=== PATIENT | female | born 1975 | race Caucasian/White ===

== ENCOUNTER → 2018-02-17 12:17 | Outpatient (CLI) | payer BC, SELFPAY | PROVIDERS: Visit Provider Nurse Practitioner Adult Health | DX: N39.0 Urinary tract infection, site not specified (principal) | CPT/HCPCS: 87077; 87086; 87088; 87186 ==

== ENCOUNTER → 2018-03-05 10:03 | Outpatient (CLI) | payer BC, SELFPAY | PROVIDERS: Family Provider Family Medicine; PCP Family Medicine; Referring Provider Nurse Practitioner Adult Health; Visit Provider Nurse Practitioner Adult Health | DX: R30.0 Dysuria (principal) | CPT/HCPCS: 87086; 87088 ==

== ENCOUNTER → 2018-05-19 08:16 | Outpatient (CLI) | payer BC, SELFPAY ==
--- OUTSIDE RECORDS SUMMARY | 2018-08-20 08:40 | XMS RPT_ITS ---
:1975 Author Organization OHIP Care Team Providers Name Role Phone Hector Holman Attending Unavailable Edgar Ordoñez Primary Care Unavailable Hector Holman Referring Unavailable Leisa Salas Attending Unavailable Leisa Salas Referring Unavailable Primay Care Physicia, No Primary Care Unavailable Leisa Salas Attending Unavailable Leisa Salsa Referring Unavailable Edgar Ordoñez Primary Care Unavailable AMANDA PHAN (PORCELAIN FINISH SPRAYER) Attending Unavailable CHRIS BHATT Referring Unavailable LOLLY VILLANUEVA (AMMONIA REFRIGERATION TECHNICIAN) Attending Unavailable JUVENAL ORDOÑEZ) Attending Unavailable JUVENAL ORDOÑEZ) Referring Unavailable MIREILLE DAVE (PORCELAIN FINISH SPRAYER) Attending Unavailable MIREILLE DAVE (PORCELAIN FINISH SPRAYER) Referring Unavailable JUVENAL ORDOÑEZ) Referring Unavailable JUVENAL ORDOÑEZ) Referring Unavailable JUVENAL ORDOÑEZ) Referring Unavailable DAVID ELY Attending Unavailable JUVENAL ORDOÑEZ) Referring Unavailable GLENYS MUNOZ (PORCELAIN FINISH SPRAYER) Attending Unavailable JUVENAL ORDOÑEZ) Attending Unavailable JUVENAL ORDOÑEZ) Referring Unavailable PROBLEMS PROBLEMS DATE TYPE CONDITION / CODE ATTENDING STATUS SOURCE 05/19/2018 Unknown R30.0 - Dysuria / River[place] Active [facility] R30.0(ICD-10) [facility] Repository 02/08/2018 Active Dysuria / NA Active [facility] R30.0(ICD-10) [facility] [place] Repository 01/31/2018 Active Pelvic and OLDER, GLENYS Active [facility] perineal pain / (PORCELAIN FINISH SPRAYER) [facility] [place] R10.2(ICD-10) Repository 01/31/2018 Active Frequency of OLDER, GLENYS Active [facility] micturition / (PORCELAIN FINISH SPRAYER) [facility] [place] R35.0(ICD-10) Repository 11/11/2017 Active Unspecified lump NA Active [facility] in the left [facility] [place] breast, Repository unspecified quadrant / N63.20(ICD-10) 11/09/2017 Active Encounter for Active [facility] screening [facility] [place] mammogram for Repository malignant neoplasm of breast / Z12.31(ICD-10) 09/22/2017 Active Right upper NA Active [facility] quadrant pain / [facility] [place] R10.11(ICD-10) Repository 08/07/2017 Active Encounter for NA Active [facility] general adult [facility] [place] medical Repository examination without abnormal findings / Z00.00(ICD-10) 07/16/2017 Active Candidal LOLLY VILLANUEVA Active [facility] stomatitis / (AMMONIA REFRIGERATION TECHNICIAN) [facility] [place] B37.0(ICD-10) Repository 07/03/2017 Active Unknown / AMANDA PHAN Active [facility] UNK(Unknown) (PORCELAIN FINISH SPRAYER) [facility] [place] Repository PROCEDURES PROCEDURES No Procedure Records FoundRESULTS RESULTS C DIFFICILE PCR Collected: 06/04/2018 Status: F Source: [place] 11:05 AM [facility] REPOSITORY TYPE CODE TESTS RESULT OUT OF RANGE REFERENCE UNITS LAB CDFRES C Abnormal difficile PCR Positive for Alert C. difficile toxin by PCR Result Comment: . A positive PCR result may indicate C. difficile infection or colonization. The positive predictive value of this test for C. difficile infection is highest for patients with clinically significant diarrhea (>=3 unformed stools in 24 h) who do not have an alternative explanation (e.g., recent receipt of laxatives). Toxin EIA testing will also be performed as recommended by IDSA clinical practice guidelines for institutions without preagreed criteria for specimen submission. Performed By: #### CDPCR #### [facility] [address] [place], [place] [address] C. DIFF TOXIN BY Collected: 06/04/2018 Status: F Source: [place] EIA LAB 11:05 AM [facility] ORDER ONLY REPOSITORY TYPE CODE TESTS RESULT OUT OF RANGE REFERENCE UNITS LAB CDEIAT C. Abnormal difficile toxin Alert C.diff detected by Toxin EIA EIA. Performed By: #### CDEIA #### [facility] [address] [place], [place] [address] CNPN Observed: 06/04/2018 Status: COMPLETED Source: [place] 12:00 AM [facility] REPOSITORY Telephone (FAMPWS) KAREN BELL ([id number]) 1975 F Date Time Provider Department 06/04/18 [facility]NAL [facility]DO[facility] During your visit today, we recorded the following information about you: Pushpa Spann RAULITO 06/04/2018 9:14 AM Signed Patient calling has history of C-diff after taking antibiotics, and she had taken 3 days of cipro started on xmas. Patient now has been having 4 to 5 diarrhea stools daily past several days and asking if she should have stool tested for C-diff or wait it out until Thursday to see if stops on its own? Patient said she does not feel bad at all, but with the history she wants to be proactive. Please advise Juvenal Ordoñez MD 06/04/2018 10:08 AM Signed I will order stool study for c diff with history of infection and recent abx use. Patient may pecan picker today and bring in sample at earliest convenience. Recommend pushing PO fluids, bland diet, increased fiber, and avoidance of OTC anti diarrheals until results are back. Jacklyn Booker Ma 06/04/2018 11:01 AM Addendum Patient notified of results, verbalizes understanding of instructions. Patient advised if cdiff comes back positive wants DIFICIL rx nothing else. Jacklyn Ordoñez MD 06/04/2018 11:04 AM Signed Ok, will await results. Allergies As of Date: 06/04/2018 Noted Allergy Reaction ADHESIVE TAPE (ROSINS) 10/19/2013 2 - Rash PENICILLINS 10/19/2013 2 - Rash SULFA (SULFONAMIDE ANTIBIOTICS) 09/08/2015 5 - Intolerance Date Reviewed: 02/02/2018 Reviewed by: Jon Blackman Ma - Fully Assessed Reason for Visit: question if should have stool sample checked [Other] Primary Visit Diagnosis:Diarrhea, unspecified type [R19.7] Order(s):C. DIFFICILE PCR [SQCDPCR] Order #: [id number]. #:[id number] Prescriptions as of 06/04/2018 Sig: SERTRALINE 25 MG TABLET Take 1 tablet by mouth once d* PHENAZOPYRIDINE 200 MG TABLET Take 1 tablet by mouth three * DICYCLOMINE 20 MG TABLET Take 1 tablet by mouth three * Problem List As Of Date 06/04/2018 Noted Resolved Enterocolitis due to Clostridium difficile [A04*INVALID FOR* More... Recurrent UTI [N39.0] INVALID FOR* More... Irritable bowel syndrome with both constipation*INVALID FOR* Encounter Status:Closed by JACKLYN BOOKER MA on 06/04/18 Observed: 05/19/2018 Status: F Source: [place] CULTURE, URINE 8:19 AM [facility] REPOSITORY Urine Culture ORGANISM 1: Streptococcus agalactiae (B) [place] Count 11,000-25,000 Streptococcus agalactiae (B): REACTION Ampicillin $ <=0.25 S Inducable Clindamycin Resistan - Linezolid $$$$ <=2 S Vancomycin $ 0.5 S (NF) indicates non-formulary drug at [facility]. Approval by Infectious Disease Specialist required before non-formulary drugs may be ordered and/or dispensed. * CLSI guidelines does not recommend testing of cephalosporins. This interpretation is deduced from Beta-lactam/penicillin results. Performed By: #### [id number] #### [facility] [address] [place], [address] Observed: 03/05/2018 Status: F Source: [place] CULTURE, URINE 10:09 AM [facility] REPOSITORY Urine Culture Below infection level. Group B Streptococcus isolated from culture. ORGANISM 1: Mixed Gram Positive Organisms [place] Count 1000-10,000 Performed By: #### [id number] #### [facility] [address] [place], [address] Observed: 02/17/2018 Status: F Source: [place] CULTURE, URINE 10:30 AM [facility] REPOSITORY Urine Culture ORGANISM 1: Streptococcus agalactiae (B) [place] Count 11,000-25,000 Streptococcus agalactiae (B): REACTION Ampicillin $ <=0.25 S Benzylpenicillin NF <=0.06 S Ceftriaxone $ <=0.12 S Inducable Clindamycin Resistan - Linezolid $$$$ <=2 S Vancomycin $ 0.5 S (NF) indicates non-formulary drug at [facility]. Approval by Infectious Disease Specialist required before non-formulary drugs may be ordered and/or dispensed. * CLSI guidelines does not recommend testing of cephalosporins. This interpretation is deduced from Beta-lactam/penicillin results. Performed By: #### [id number] #### [facility] [address] [place], [address] URINALYSIS WITH Collected: 02/08/2018 Status: F Source: [facility] 2:55 PM [facility] REPOSITORY TYPE CODE TESTS RESULT OUT OF REFERENCE UNITS RANGE LAB UCOL Yellow Color Yellow LAB [facility] Clear Clarity Clear LAB UGLUC Negative mg/dL Glucose, Urine Negative LAB UBIL Negative Bilirubin, Urine Negative LAB UKET Negative Ketones, Urine Negative LAB USPG 1.005-1.030 Specific [place], Ur 1.005 LAB UHGB Negative Hemoglobin/Blood, Negative Ur LAB UPH 4.5-8.0 pH 6.0 LAB UPROT Negative mg/dL Protein, Urine Negative LAB UUROB Normal Urobilinogen Normal LAB UNITR Negative Nitrites Negative LAB ULKEST Negative Leukest Negative LAB UCOM Comments SEE COMMENT Result Comment: N/A LAB UMCOM Urine SEE Miki Comment COMMENT Result Comment: N/A LAB UWBC 0-5 /HPF WBC 0-5 LAB URBC 0-3 /HPF RBC 0-3 LAB UEPI /HPF Epithelial SEE Cells COMMENT Result Comment: Few Squamous Epithelial Cells Performed By: #### UAWMIC #### [facility] [address], [place] [address] Observed: 02/08/2018 Status: F Source: [place] URINE CULTURE 2:55 PM [facility] REPOSITORY Culture Result - <10,000 CFU/ml Streptococcus agalactiae (Group B streptococcus) --> ABNORMAL ALERT No further workup --> ABNORMAL ALERT 10,000 - <50,000 CFU/ml Normal urogenital av Performed By: #### URCUL #### [facility] [address] [place], [place] [address] PROGRESS Observed: 02/02/2018 Status: COMPLETED Source: [place] 3:57 PM [facility] REPOSITORY HNO ID: [id number] Author: Juvenal Bruce) Ti[place] Service: (none) Author Type: Physician Type: Progress Notes Filed: 02/03/2018 7:53 AM Note Text: Chief Complaint Patient presents with: Hematuria: was in express care 48 hours ago - ua cx in process HPI Karen Bell is a 42 year old female who presents here today for Above Complaints. Patient previously diagnosed with UTI after positive urine culture on 01/22. Positive for Group B strep and treated with macrobid which didn't have much effect on her symptoms. Still complaining of intermittent suprapubic discomfort with radiation down her legs. Admits to urinary frequency. Denies urgency, dysuria, hematuria flank pain, nausea, vomiting. Very hesitant to start the Keflex as recommended for this infection after we heard that the macrobid was not helping. Developed C diff on keflex and would like to avoid it if at all possible. Repeat urine culture results ordered at UC visit on 01/31 still pending today. Would like to see if she is still positive before starting abx. Questioning PCN instead despite possible allergy causing rash, but states that the rash may have been 2/2 scarlet fever which is why she was on abx in the first place. Past medical history, appointments, medications, allergies reviewed. Previous Medical History PAST MEDICAL HISTORY Diagnosis Date - C. difficile colitis 2015 Previous Surgical History PAST SURGICAL HISTORY Procedure Laterality Date - PAST SURGICAL HISTORY OF x 4 - PAST SURGICAL HISTORY OF 2012 L elbow replacement s/p injury Family History FAMILY HISTORY Problem Relation Age of Onset - Stroke Mother 63 hyperlipidemia, carotid artery - Thyroid Father ? parathyroid adenoma - None Sister - Cancer Maternal Grandfather lymphoma - Stroke Maternal Grandfather - Cancer Paternal Grandfather lung Patient Allergies ALLERGIES Allergen Reactions - Adhesive Tape (Rae* Rash - Penicillins Rash - Sulfa (Sulfonamide * Intolerance Current Medications Current Outpatient Prescriptions on File Prior to Visit: dicyclomine (BENTYL) 20 mg tablet Take 1 tablet by mouth three times daily as needed. cephALEXin (KEFLEX) 500 mg capsule Take 1 capsule by mouth twice daily for 7 days. (Patient not taking: Reported on 01/31/2018 ) No current facility-administered medications on file prior to visit. Social History Social History Marital status: Spouse name: Years of education: Number of children: Occupational History Occupation Employer Comment stay at home Social History Main Topics Smoking status: Never Smoker Smokeless tobacco: Never Used Alcohol use: Yes 1.5 oz/week Glasses of Wine (5oz): 1 per week Drug use: No Sexual activity: Yes Partners with: Male Comment: natural family planning Social History Narrative 3 kids Natural family planning Review of Symptoms REVIEW OF SYSTEMS See HPI EXAM: BP 126/78 Pulse 64 Temp 37 ?C (98.6 ?F) (Temporal Artery) Resp 12 Wt 50.3 kg (111 lb) LMP 01/19/2018 BMI 18.47 kg/m? General Appearance: Well appearing, alert, in no acute distress, well-hydrated, well nourished.. Skin: Skin color, texture, turgor normal, no suspicious rashes or lesions. Abdomen: Abdomen soft.Bowel sounds normal. No masses, organomegaly, Negative CVA tenderness, Positive findings: tenderness mild suprapubic. Health Maintenance List HPV EVERY 5 YEARS due on 2007 MAMMOGRAM due on 2017 INFLUENZA(1) due on 01/30/2018 PAP EVERY 5 YEARS due on 11/30/2019 DTAP,TDAP,TD(2 - Td) due on 12/26/2026 ASSESSMENT/PLAN: 1. Recurrent UTI - ICD9: 599.0, ICD10: N39.0 Will await urine culture results before starting new abx. Will review alternative abx aside from keflex if still positive. Push PO fluids. Will call tomorrow with results. Juvenal Ordoñez MD CNOV Observed: 02/02/2018 Status: COMPLETED Source: [place] 3:40 PM [facility] REPOSITORY Office Visit (FAMPWS) KAREN BELL ([id number]) 1975 F Date Time Provider Department 02/02/18 3:40 PM JUVENAL ORDOÑEZ) FAMPWS During your visit today, we recorded the following information about you: Temperature Pulse Respiration Blood pressure 98.6 degrees 64/minute 12/minute 126/78 Weight 50.3 kg Juvenal Ordoñez MD 02/03/2018 7:53 AM Signed Chief Complaint Patient presents with: Hematuria: was in express care 48 hours ago - ua cx in process HPI Karen Bell is a 42 year old female who presents here today for Above Complaints. Patient previously diagnosed with UTI after positive urine culture on 01/22. Positive for Group B strep and treated with macrobid which didn't have much effect on her symptoms. Still complaining of intermittent suprapubic discomfort with radiation down her legs. Admits to urinary frequency. Denies urgency, dysuria, hematuria flank pain, nausea, vomiting. Very hesitant to start the Keflex as recommended for this infection after we heard that the macrobid was not helping. Developed C diff on keflex and would like to avoid it if at all possible. Repeat urine culture results ordered at visit on 01/31 still pending today. Would like to see if she is still positive before starting abx. Questioning PCN instead despite possible allergy causing rash, but states that the rash may have been 2/2 scarlet fever which is why she was on abx in the first place. Past medical history, appointments, medications, allergies reviewed. Previous Medical History PAST MEDICAL HISTORY Diagnosis Date - C. difficile colitis 2015 Previous Surgical History PAST SURGICAL HISTORY Procedure Laterality Date - PAST SURGICAL HISTORY OF x 4 - PAST SURGICAL HISTORY OF 2011 L elbow replacement s/p injury Family History FAMILY HISTORY Problem Relation Age of Onset - Stroke Mother 63 hyperlipidemia, carotid artery - Thyroid Father ? parathyroid adenoma - None Sister - Cancer Maternal Grandfather lymphoma - Stroke Maternal Grandfather - Cancer Paternal Grandfather lung Patient Allergies ALLERGIES Allergen Reactions - Adhesive Tape (Rae* Rash - Penicillins Rash - Sulfa (Sulfonamide * Intolerance Current Medications Current Outpatient Prescriptions on File Prior to Visit: dicyclomine (BENTYL) 20 mg tablet Take 1 tablet by mouth three times daily as needed. cephALEXin (KEFLEX) 500 mg capsule Take 1 capsule by mouth twice daily for 7 days. (Patient not taking: Reported on 01/31/2018 ) No current facility-administered medications on file prior to visit. Social History Social History Marital status: Spouse name: Years of education: Number of children: Occupational History Occupation Employer Comment stay at home Social History Main Topics Smoking status: Never Smoker Smokeless tobacco: Never Used Alcohol use: Yes 1.5 oz/week Glasses of Wine (5oz): 1 per week Drug use: No Sexual activity: Yes Partners with: Male Comment: natural family planning Social History Narrative 3 kids Natural family planning Review of Symptoms REVIEW OF SYSTEMS See HPI EXAM: BP 126/78 Pulse 64 Temp 37 ?C (98.6 ?F) (Temporal Artery) Resp 12 Wt 50.3 kg (111 lb) LMP 01/19/2018 BMI 18.47 kg/m? General Appearance: Well appearing, alert, in no acute distress, well-hydrated, well nourished.. Skin: Skin color, texture, turgor normal, no suspicious rashes or lesions. Abdomen: Abdomen soft.Bowel sounds normal. No masses, organomegaly, Negative CVA tenderness, Positive findings: tenderness mild suprapubic. Health Maintenance List HPV EVERY 5 YEARS due on 2007 MAMMOGRAM due on 2017 INFLUENZA(1) due on 01/30/2018 PAP EVERY 5 YEARS due on 11/30/2019 DTAP,TDAP,TD(2 - Td) due on 12/26/2026 ASSESSMENT/PLAN: 1. Recurrent UTI - ICD9: 599.0, ICD10: N39.0 Will await urine culture results before starting new abx. Will review alternative abx aside from keflex if still positive. Push PO fluids. Will call tomorrow with results. Juvenal Ordoñez MD Referring Provider: SELF [[id number]] Allergies As of Date: 02/02/2018 Noted Allergy Reaction ADHESIVE TAPE (ROSINS) 10/19/2013 2 - Rash PENICILLINS 10/19/2013 2 - Rash SULFA (SULFONAMIDE ANTIBIOTICS) 09/08/2015 5 - Intolerance Date Reviewed: 02/02/2018 Reviewed by: Jon Blackman Ma - Fully Assessed Reason for Visit: Hematuria [335] Cmt: was in express care 48 hours ago - ua cx in process Primary Visit Diagnosis:Recurrent UTI [N39.0] Prescriptions as of 02/02/2018 Sig: DICYCLOMINE 20 MG TABLET Take 1 tablet by mouth three * CEPHALEXIN 500 MG CAPSULE Take 1 capsule by mouth twice* Patient not taking: Reported on 01/31/2018 Problem List As Of Date 02/02/2018 Noted Resolved Enterocolitis due to Clostridium difficile [A04*INVALID FOR* More... Recurrent UTI [N39.0] INVALID FOR* More... Irritable bowel syndrome with both constipation*INVALID FOR* Encounter Status:Closed by JUVENAL ORDOÑEZ MD on 02/03/18 Observed: 01/31/2018 Status: F Source: [place] URINE CULTURE 9:50 PM [facility] REPOSITORY Sp. Request/Comment: - Specimen received in preservative Culture Result - <10,000 CFU/ml Streptococcus agalactiae (Group B streptococcus) --> ABNORMAL ALERT No further workup --> ABNORMAL ALERT <10,000 CFU/ml --> ABNORMAL ALERT Enterococcus --& gt; ABNORMAL ALERT Insignificant colony count. No further workup. --> ABNORMAL ALERT Cephalosporins, clindamycin, and TMP-SMX are not effective for the treatment of enterococcal infections. --> ABNORMAL ALERT <10,000 CFU/ml Normal urogenital av Performed By: #### URCUL #### [facility] [address] [place], [place] [address] PROGRESS Observed: 01/31/2018 Status: COMPLETED Source: [place] 3:15 PM [facility] [place] REPOSITORY HNO ID: [id number] Author: Glenys (Jen) Older Service: (none) Author Type: Nurse Practitioner Type: Progress Notes Filed: 01/31/2018 3:37 PM Note Text: CC: Patient presents with: UTI HPI Karen Bell is a 42 year old female who presents with complaint of possible UTI. She was seen on 01/22 in urgent care with urinary frequency and pelvic discomfort. Urine dip was negative except for large amount of blood but pt was on her period at that time. Urine culture was positive for >100,000 group B strep and treated with 5 day course of Macrobid. Patient states symptoms never really resolved, continues to have intermittent pelvic discomfort that sometimes causing numbness and tingling to radiate down her legs. No trigger for pain including that she is aware of and resolves on its own. Does not improve or worsen with urination. Denies: burning, urgency, foul smelling urine, backpain, hematuria, fever, chills, abdominal pain, flank pain, abnormal vaginal discharge, vaginal redness and vaginal itching Treatments: increasing her fluids Risk factors for UTI: previous urinary tract infection and interstitial cystitis. Last time she had issues with IC was a few years ago. REVIEW OF SYSTEMS Musculoskeletal: Denies lumbar spine pain or pain with ROM PMH, Medications, labs, allergies, and recent past visits with PCP were reviewed and updated as able. PHYSICAL EXAM: BP 110/70 Pulse 68 Temp 36.8 ?C (98.2 ?F) (Left Tympanic) Resp 10 Wt 50.8 kg (112 lb) LMP 01/19/2018 BMI 18.64 kg/m? General: Well appearing and alert CV: Regular rate and rhythm without obvious murmur Lungs: clear to auscultation bilaterally Back: no pinpoint spinal tenderness, no SI joint tenderness, no CVA tenderness, Full and painless ROM Abdomen: Abdomen soft, non-distended. mild suprapubic tenderness with palpation. No guarding or rebound tenderness. Bowel sounds normal and active. No masses, organomegaly. ASSESSMENT/PLAN: 1. Suprapubic discomfort - ICD9: 789.09, ICD10: R10.2 (primary diagnosis) Etiology unclear Differential Diagnosis includes Cystitis and interstitial cystitis - UA DIP B/O negative, send URINE CULTURE Will defer treatment until results of culture. Patient very hesitant to start antibiotic due to prior history of C-diff less than one year ago secondary to keflex. Advised patient if still positive for Group B strep keflex would be the most effective. Unable to take PCN due to rash that occurred when she was a child. 2. Urine frequency - ICD9: 788.41, ICD10: R35.0 As above - UA DIP B/O - URINE CULTURE Prescription instructions reviewed with patient as applicable. Potential red flag symptoms discussed with the patient. Reviewed appropriate action plan to take if red flag symptoms occur. Patient agreeable to treatment plan. Glenys Munoz APRN.CNP CNOV Observed: 01/31/2018 Status: COMPLETED Source: [place] 3:00 PM [facility] REPOSITORY Office Visit (WSTR) KAREN BELL ([id number]) 1975 F Date Time Provider Department 01/31/18 3:00 PM GLENYS MUNOZ (JEN) WSTR During your visit today, we recorded the following information about you: Temperature Pulse Respiration Blood pressure 98.2 degrees 68/minute 10/minute 110/70 Weight 50.8 kg Glenys Munoz APRN.CNP 01/31/2018 3:37 PM Signed CC: Patient presents with: UTI HPI Karen Bell is a 42 year old female who presents with complaint of possible UTI. She was seen on 01/22 in urgent care with urinary frequency and pelvic discomfort. Urine dip was negative except for large amount of blood but pt was on her period at that time. Urine culture was positive for >100,000 group B strep and treated with 5 day course of Macrobid. Patient states symptoms never really resolved, continues to have intermittent pelvic discomfort that sometimes causing numbness and tingling to radiate down her legs. No trigger for pain including that she is aware of and resolves on its own. Does not improve or worsen with urination. Denies: burning, urgency, foul smelling urine, backpain, hematuria, fever, chills, abdominal pain, flank pain, abnormal vaginal discharge, vaginal redness and vaginal itching Treatments: increasing her fluids Risk factors for UTI: previous urinary tract infection and interstitial cystitis. Last time she had issues with IC was a few years ago. REVIEW OF SYSTEMS Musculoskeletal: Denies lumbar spine pain or pain with ROM PMH, Medications, labs, allergies, and recent past visits with PCP were reviewed and updated as able. PHYSICAL EXAM: BP 110/70 Pulse 68 Temp 36.8 ?C (98.2 ?F) (Left Tympanic) Resp 10 Wt 50.8 kg (112 lb) LMP 01/19/2018 BMI 18.64 kg/m? General: Well appearing and alert CV: Regular rate and rhythm without obvious murmur Lungs: clear to auscultation bilaterally Back: no pinpoint spinal tenderness, no SI joint tenderness, no CVA tenderness, Full and painless ROM Abdomen: Abdomen soft, non-distended. mild suprapubic tenderness with palpation. No guarding or rebound tenderness. Bowel sounds normal and active. No masses, organomegaly. ASSESSMENT/PLAN: 1. Suprapubic discomfort - ICD9: 789.09, ICD10: R10.2 (primary diagnosis) Etiology unclear Differential Diagnosis includes Cystitis and interstitial cystitis - UA DIP B/O negative, send URINE CULTURE Will defer treatment until results of culture. Patient very hesitant to start antibiotic due to prior history of C-diff less than one year ago secondary to keflex. Advised patient if still positive for Group B strep keflex would be the most effective. Unable to take PCN due to rash that occurred when she was a child. 2. Urine frequency - ICD9: 788.41, ICD10: R35.0 As above - UA DIP B/O - URINE CULTURE Prescription instructions reviewed with patient as applicable. Potential red flag symptoms discussed with the patient. Reviewed appropriate action plan to take if red flag symptoms occur. Patient agreeable to treatment plan. Glenys Munoz, MILO.PORCELAIN FINISH SPRAYER Referring Provider: SELF [[id number]] Allergies As of Date: 01/31/2018 Noted Allergy Reaction ADHESIVE TAPE (ROSINS) 10/19/2013 2 - Rash PENICILLINS 10/19/2013 2 - Rash SULFA (SULFONAMIDE ANTIBIOTICS) 09/08/2015 5 - Intolerance Date Reviewed: 01/31/2018 Reviewed by: Karen Sahu Ma - Fully Assessed Reason for Visit: UTI [116] Primary Visit Diagnosis:Suprapubic discomfort [R10.2] Other Visit Diagnosis:Urine frequency [R35.0] Order(s):UA DIP B/O [[id number]] Order #: [id number] URINE CULTURE [SQURCUL] Order #: [id number] Prescriptions as of 01/31/2018 Sig: DICYCLOMINE 20 MG TABLET Take 1 tablet by mouth three * CEPHALEXIN 500 MG CAPSULE Take 1 capsule by mouth twice* Patient not taking: Reported on 01/31/2018 Problem List As Of Date 01/31/2018 Noted Resolved Enterocolitis due to Clostridium difficile [A04*INVALID FOR* More... Recurrent UTI [N39.0] INVALID FOR* More... Irritable bowel syndrome with both constipation*INVALID FOR* Encounter Status:Closed by GLENYS MUNOZ CNP on 01/31/18 Observed: 01/22/2018 Status: F Source: [place] URINE CULTURE 8:30 PM [facility] REPOSITORY Sp. Request/Comment: - Specimen received in preservative Culture Result - >=100,000 CFU/ml Streptococcus agalactiae (Group B streptococcus) --> ABNORMAL ALERT Susceptibility testing not performed on beta hemolytic streptococci due to predictable suscept ibility to penicillin and other beta lactams. For testing, call Microbiology within 72 hours. --> ABNORMAL ALERT Performed By: #### URCUL #### [facility] [address] [id number] PROGRESS Observed: 01/22/2018 Status: COMPLETED Source: [place] 7:50 PM [facility] REPOSITORY HNO ID: [id number] Author: Shaina (Lease Analyst) Basilio Service: (none) Author Type: Nurse Practitioner Type: Progress Notes Filed: 01/22/2018 8:27 PM Note Text: Subjective HPI Karen Bell is a 42 year old female who presents with urinary frequency and dysuria for the past 5 days. No fever. She has taken tylenol and advil at home. She has a history of interstitial cystitis and has pain similar to this with IC flares. She wants to make sure she does not have a UTI currently. She is currently menstruating. Review of Systems Constitutional: Negative. Negative for chills and fever. Respiratory: Negative. Cardiovascular: Negative. Gastrointestinal: Positive for abdominal pain (suprapubic). Genitourinary: Positive for dysuria and frequency. BP 118/80 Pulse 76 Temp 36.6 ?C (97.9 ?F) (Tympanic) Resp 16 Wt 51.3 kg (113 lb) LMP 01/19/2018 BMI 18.80 kg/m? PAST MEDICAL HISTORY Diagnosis Date - C. difficile colitis 2015 PAST SURGICAL HISTORY Procedure Laterality Date - PAST SURGICAL HISTORY OF x 4 - PAST SURGICAL HISTORY OF 2012 L elbow replacement s/p injury ALLERGIES Adhesive Tape (Rosins); Penicillins; Sulfa (Sulfonamide Antibiotics) MEDICATIONS dicyclomine (BENTYL) 20 mg tablet Take 1 tablet by mouth three times daily as needed. FAMILY HISTORY Problem Relation Age of Onset - Stroke Mother 63 hyperlipidemia, carotid artery - Thyroid Father ? parathyroid adenoma - None Sister - Cancer Maternal Grandfather lymphoma - Stroke Maternal Grandfather - Cancer Paternal Grandfather lung Social History Substance Use Topics - Smoking status: Never Smoker - Smokeless tobacco: Never Used - Alcohol use 1.5 oz/week 1 Glasses of Wine (5oz) per week Objective Physical Exam Constitutional: She is well-developed, well-nourished, and in no distress. Cardiovascular: Normal rate, regular rhythm and normal heart sounds. Pulmonary/Chest: Effort normal and breath sounds normal. Abdominal: There is no hepatosplenomegaly. There is tenderness in the suprapubic area. There is no CVA tenderness. Neurological: She is alert. Skin: Skin is warm and dry. Nursing note and vitals reviewed. ASSESSMENT/PLAN: 1. Urinary frequency - ICD9: 788.41, ICD10: R35.0 acute - UA positive for hematuria and ketones - Send urine for culture - Patient education for prevention given - UA DIP B/O - URINE CULTURE - likely IC flare - Follow-up with your PCP in 3-5 days if symptoms have not improved or sooner if symptoms worsen - Discussed red flags and need for immediate medical evaluation if any occur. - Discussed supportive care treatment with fluids, rest and analgesia. - Discussed expected course of illness Shaina Richmond APRN.PORCELAIN FINISH SPRAYER CNOV Observed: 01/22/2018 Status: COMPLETED Source: [place] 7:15 PM [facility] REPOSITORY Office Visit ([facility]) KAREN BELL ([id number]) 1975 F Date Time Provider Department 01/22/18 7:15 PM SHAINA RICHMOND (PORCELAIN FINISH SPRAYER) [facility] During your visit today, we recorded the following information about you: Temperature Pulse Respiration Blood pressure 97.9 degrees 76/minute 16/minute 118/80 Weight Last Period 51.3 kg 01/19/18 Shaina Richmond APRN.JNE 01/22/2018 8:27 PM Signed Subjective HPI Karen Bell is a 42 year old female who presents with urinary frequency and dysuria for the past 5 days. No fever. She has taken tylenol and advil at home. She has a history of interstitial cystitis and has pain similar to this with IC flares. She wants to make sure she does not have a UTI currently. She is currently menstruating. Review of Systems Constitutional: Negative. Negative for chills and fever. Respiratory: Negative. Cardiovascular: Negative. Gastrointestinal: Positive for abdominal pain (suprapubic). Genitourinary: Positive for dysuria and frequency. BP 118/80 Pulse 76 Temp 36.6 ?C (97.9 ?F) (Tympanic) Resp 16 Wt 51.3 kg (113 lb) LMP 01/19/2018 BMI 18.80 kg/m? PAST MEDICAL HISTORY Diagnosis Date - C. difficile colitis 2016 PAST SURGICAL HISTORY Procedure Laterality Date - PAST SURGICAL HISTORY OF x 4 - PAST SURGICAL HISTORY OF 2012 L elbow replacement s/p injury ALLERGIES Adhesive Tape (Rosins); Penicillins; Sulfa (Sulfonamide Antibiotics) MEDICATIONS dicyclomine (BENTYL) 20 mg tablet Take 1 tablet by mouth three times daily as needed. FAMILY HISTORY Problem Relation Age of Onset - Stroke Mother 63 hyperlipidemia, carotid artery - Thyroid Father ? parathyroid adenoma - None Sister - Cancer Maternal Grandfather lymphoma - Stroke Maternal Grandfather - Cancer Paternal Grandfather lung Social History Substance Use Topics - Smoking status: Never Smoker - Smokeless tobacco: Never Used - Alcohol use 1.5 oz/week 1 Glasses of Wine (5oz) per week Objective Physical Exam Constitutional: She is well-developed, well-nourished, and in no distress. Cardiovascular: Normal rate, regular rhythm and normal heart sounds. Pulmonary/Chest: Effort normal and breath sounds normal. Abdominal: There is no hepatosplenomegaly. There is tenderness in the suprapubic area. There is no CVA tenderness. Neurological: She is alert. Skin: Skin is warm and dry. Nursing note and vitals reviewed. ASSESSMENT/PLAN: 1. Urinary frequency - ICD9: 788.41, ICD10: R35.0 acute - UA positive for hematuria and ketones - Send urine for culture - Patient education for prevention given - UA DIP B/O - URINE CULTURE - likely IC flare - Follow-up with your PCP in 3-5 days if symptoms have not improved or sooner if symptoms worsen - Discussed red flags and need for immediate medical evaluation if any occur. - Discussed supportive care treatment with fluids, rest and analgesia. - Discussed expected course of illness JENNY Watkins APRN.CNP 01/22/2018 8:01 PM Signed Increase fluid intake. Avoid sugary liquids and citrus foods/liquids. May try D Mannose powder or capsules. We will call if culture is positive. Referring Provider: SELF [200] Allergies As of Date: 01/22/2018 Noted Allergy Reaction ADHESIVE TAPE (ROSINS) 10/19/2013 2 - Rash PENICILLINS 10/19/2013 2 - Rash SULFA (SULFONAMIDE ANTIBIOTICS) 09/08/2015 5 - Intolerance Date Reviewed: 01/22/2018 Reviewed by: Shaina (Heraclio Richmond - Fully Assessed Reason for Visit: Urinary Frequency [1086] Cmt: burning with urination x 5 days Primary Visit Diagnosis:Urinary frequency [R35.0] Order(s):UA DIP B/O [[id number]] Order #: [id number] URINE CULTURE [SQURCUL] Order #: [id number] Prescriptions as of 01/22/2018 Sig: DICYCLOMINE 20 MG TABLET Take 1 tablet by mouth three * Problem List As Of Date 01/22/2018 Noted Resolved Enterocolitis due to Clostridium difficile [A04*INVALID FOR* More... Recurrent UTI [N39.0] INVALID FOR* More... Irritable bowel syndrome with both constipation*INVALID FOR* Other instructions from your clinician: Increase fluid intake. Avoid sugary liquids and citrus foods/liquids. May try D Mannose powder or capsules. We will call if culture is positive. Encounter Status:Closed by SHAINA RICHMOND on 01/22/18 GROUP A STREP BY Collected: 12/11/2017 Status: F Source: [place] PCR 10:58 PM [facility] REPOSITORY TYPE CODE TESTS RESULT OUT OF REFERENCE UNITS RANGE LAB GASSRC Throat Swab GAS Specimen Source LAB PCRGAS Negative for Group A Strep Group A PCR Streptococcus by PCR. Result Comment: This test was developed and its performance characteristics determined by [facility] [place] ([facility]). It has not been cleared or approved by the FDA. [facility] is regulated under CLIA as qualified to perform high-complexity testing. This test is used for clinical purposes. It should not be regarded as inv estigational or for research. Performed By: #### GASPCR #### [facility] [address] [id number] PROGRESS Observed: 12/11/2017 Status: COMPLETED Source: [place] 1:57 PM [facility] REPOSITORY HNO ID: [id number] Author: Thierry Rivas Service: (none) Author Type: Nurse Practitioner Type: Progress Notes Filed: 12/11/2017 2:45 PM Note Text: Subjective HPI HPI Karen Bell is a 42 year old female who presents today for CC of sore throat. This started 2 days ago. Has tried tylenol with mild relief. Symptoms are worsened by nothing. Risk factors none. .Patient presents with: sore throat and SOTELO: x 2 days PAST MEDICAL HISTORY Diagnosis Date - C. difficile colitis 2016 PAST SURGICAL HISTORY Procedure Laterality Date - PAST SURGICAL HISTORY OF x 4 - PAST SURGICAL HISTORY OF 2012 L elbow replacement s/p injury ALLERGIES Adhesive Tape (Rosins); Penicillins; Sulfa (Sulfonamide Antibiotics) MEDICATIONS dicyclomine (BENTYL) 20 mg tablet Take 1 tablet by mouth three times daily as needed. FAMILY HISTORY Problem Relation Age of Onset - Stroke Mother 63 hyperlipidemia, carotid artery - Thyroid Father ? parathyroid adenoma - None Sister - Cancer Maternal Grandfather lymphoma - Stroke Maternal Grandfather - Cancer Paternal Grandfather lung Social History Substance Use Topics - Smoking status: Never Smoker - Smokeless tobacco: Never Used - Alcohol use 1.5 oz/week 1 Glasses of Wine (5oz) per week Review of Systems Constitutional: Negative for chills, fever and weight loss. HENT: Positive for sore throat. Negative for congestion, ear pain and nosebleeds. Respiratory: Negative for cough, shortness of breath and wheezing. Musculoskeletal: Negative for neck pain. Skin: Negative for itching and rash. Objective Blood pressure 110/82, pulse 76, temperature 36.4 ?C (97.6 ?F), temperature source Tympanic, resp. rate 18, weight 50.3 kg (111 lb). Physical Exam Constitutional: She is oriented to person, place, and time and well-developed, well-nourished, and in no distress. Non-toxic appearance. She does not have a sickly appearance. No distress. HENT: Head: Normocephalic and atraumatic. Right Ear: Hearing, tympanic membrane, external ear and ear canal normal. Left Ear: Hearing, tympanic membrane, external ear and ear canal normal. Nose: Nose normal. Mouth/Throat: Uvula is midline, oropharynx is clear and moist and mucous membranes are normal. Eyes: Conjunctivae and lids are normal. Pupils are equal, round, and reactive to light. Right eye exhibits no discharge. Left eye exhibits no discharge. No scleral icterus. Neck: Trachea normal and normal range of motion. Neck supple. Cardiovascular: Normal rate, regular rhythm and normal heart sounds. Pulmonary/Chest: Effort normal and breath sounds normal. Lymphadenopathy: She has no cervical adenopathy. Neurological: She is alert and oriented to person, place, and time. Skin: No rash noted. She is not diaphoretic. ASSESSMENT/PLAN: 1. Sore throat - ICD9: 462, ICD10: J02.9 - suspect viral - Rapid Strep negative in the office today and Throat culture pending - Discussed supportive care treatment with fluids, rest and analgesia. - The patient should follow up in 3-5 days if symptoms persist or worsen - Call back if drooling, increased temperature, symptoms of dehydration and/or still sick in one week - RAPID STREP TEST B/O - GROUP A STREPTOCOCCUS BY PCR Prescription instructions reviewed with patient as applicable. Patient advised if symptoms do not improve or if symptoms worsen sooner, to contact the office for further evaluation by their primary care physician. Potential red flag symptoms discussed with the patient. Reviewed appropriate action plan to take if red flag symptoms occur. Patient agreeable to treatment plan. Thierry Rivas APRN.CNP CNOV Observed: 12/11/2017 Status: COMPLETED Source: [place] 1:45 PM [facility] REPOSITORY Office Visit ([facility]) KAREN BELL ([id number]) 1975 F Date Time Provider Department 12/11/17 1:45 PM THIERRY RIVAS (JEN) [facility] During your visit today, we recorded the following information about you: Temperature Pulse Respiration Blood pressure 97.6 degrees 76/minute 18/minute 110/82 Weight 50.3 kg Thierry Rivas APRN.CNP 12/11/2017 2:45 PM Signed Subjective HPI HPI Karen Bell is a 42 year old female who presents today for CC of sore throat. This started 2 days ago. Has tried tylenol with mild relief. Symptoms are worsened by nothing. Risk factors none. .Patient presents with: sore throat and SOTELO: x 2 days PAST MEDICAL HISTORY Diagnosis Date - C. difficile colitis 2016 PAST SURGICAL HISTORY Procedure Laterality Date - PAST SURGICAL HISTORY OF x 4 - PAST SURGICAL HISTORY OF 2012 L elbow replacement s/p injury ALLERGIES Adhesive Tape (Rosins); Penicillins; Sulfa (Sulfonamide Antibiotics) MEDICATIONS dicyclomine (BENTYL) 20 mg tablet Take 1 tablet by mouth three times daily as needed. FAMILY HISTORY Problem Relation Age of Onset - Stroke Mother 63 hyperlipidemia, carotid artery - Thyroid Father ? parathyroid adenoma - None Sister - Cancer Maternal Grandfather lymphoma - Stroke Maternal Grandfather - Cancer Paternal Grandfather lung Social History Substance Use Topics - Smoking status: Never Smoker - Smokeless tobacco: Never Used - Alcohol use 1.5 oz/week 1 Glasses of Wine (5oz) per week Review of Systems Constitutional: Negative for chills, fever and weight loss. HENT: Positive for sore throat. Negative for congestion, ear pain and nosebleeds. Respiratory: Negative for cough, shortness of breath and wheezing. Musculoskeletal: Negative for neck pain. Skin: Negative for itching and rash. Objective Blood pressure 110/82, pulse 76, temperature 36.4 ?C (97.6 ?F), temperature source Tympanic, resp. rate 18, weight 50.3 kg (111 lb). Physical Exam Constitutional: She is oriented to person, place, and time and well-developed, well-nourished, and in no distress. Non-toxic appearance. She does not have a sickly appearance. No distress. HENT: Head: Normocephalic and atraumatic. Right Ear: Hearing, tympanic membrane, external ear and ear canal normal. Left Ear: Hearing, tympanic membrane, external ear and ear canal normal. Nose: Nose normal. Mouth/Throat: Uvula is midline, oropharynx is clear and moist and mucous membranes are normal. Eyes: Conjunctivae and lids are normal. Pupils are equal, round, and reactive to light. Right eye exhibits no discharge. Left eye exhibits no discharge. No scleral icterus. Neck: Trachea normal and normal range of motion. Neck supple. Cardiovascular: Normal rate, regular rhythm and normal heart sounds. Pulmonary/Chest: Effort normal and breath sounds normal. Lymphadenopathy: She has no cervical adenopathy. Neurological: She is alert and oriented to person, place, and time. Skin: No rash noted. She is not diaphoretic. ASSESSMENT/PLAN: 1. Sore throat - ICD9: 462, ICD10: J02.9 - suspect viral - Rapid Strep negative in the office today and Throat culture pending - Discussed supportive care treatment with fluids, rest and analgesia. - The patient should follow up in 3-5 days if symptoms persist or worsen - Call back if drooling, increased temperature, symptoms of dehydration and/or still sick in one week - RAPID STREP TEST B/O - GROUP A STREPTOCOCCUS BY PCR Prescription instructions reviewed with patient as applicable. Patient advised if symptoms do not improve or if symptoms worsen sooner, to contact the office for further evaluation by their primary care physician. Potential red flag symptoms discussed with the patient. Reviewed appropriate action plan to take if red flag symptoms occur. Patient agreeable to treatment plan. ThierryJENNY Mendez APRN.CNP 12/11/2017 2:15 PM Signed ASSESSMENT/PLAN: 1. Sore throat - ICD9: 462, ICD10: J02.9 - suspect viral - Rapid Strep negative in the office today and Throat culture pending - Discussed supportive care treatment with fluids, rest and analgesia. - The patient should follow up in 3-5 days if symptoms persist or worsen - Call back if drooling, increased temperature, symptoms of dehydration and/or still sick in one week - RAPID STREP TEST B/O - GROUP A STREPTOCOCCUS BY PCR Referring Provider: SELF [200] Allergies As of Date: 12/11/2017 Noted Allergy Reaction ADHESIVE TAPE (ROSINS) 10/19/2013 2 - Rash PENICILLINS 10/19/2013 2 - Rash SULFA (SULFONAMIDE ANTIBIOTICS) 09/08/2015 5 - Intolerance Date Reviewed: 12/11/2017 Reviewed by: Thierry (Jen) - Fully Assessed Reason for Visit: sore throat and SOTELO [Other] Cmt: x 2 days Primary Visit Diagnosis:Sore throat [J02.9] Order(s):RAPID STREP TEST B/O [[id number]] Order #: [id number] GROUP A STREPTOCOCCUS BY PCR [SQGASPCR] Order #: [id number] Prescriptions as of 12/11/2017 Sig: DICYCLOMINE 20 MG TABLET Take 1 tablet by mouth three * Problem List As Of Date 12/11/2017 Noted Resolved Enterocolitis due to Clostridium difficile [A04*INVALID FOR* More... Recurrent UTI [N39.0] INVALID FOR* More... Irritable bowel syndrome with both constipation*INVALID FOR* Other instructions from your clinician: ASSESSMENT/PLAN: 1. Sore throat - ICD9: 462, ICD10: J02.9 - suspect viral - Rapid Strep negative in the office today and Throat culture pending - Discussed supportive care treatment with fluids, rest and analgesia. - The patient should follow up in 3-5 days if symptoms persist or worsen - Call back if drooling, increased temperature, symptoms of dehydration and/or still sick in one week - RAPID STREP TEST B/O - GROUP A STREPTOCOCCUS BY PCR Encounter Status:Closed by THIERRY RIVAS CNP on 12/11/17 PROGRESS Observed: 12/04/2017 Status: COMPLETED Source: [place] 2:07 PM [facility] [place] REPOSITORY HNO ID: [id number] Author: David Ely Service: (none) Author Type: Physician Type: Progress Notes Filed: 12/04/2017 2:26 PM Note Text: DEPARTMENT OF GASTROENTEROLOGY - NEW PATIENT/CONSULT REASON FOR VISIT Karen Bell is a 42 year old female who is scheduled at the request of Juvenal Ordoñez for history c diff. My final recommendations will be communicated back to the requesting physician by the way of the shared medical record, fax, or via US Mail HISTORY OF PRESENT ILLNESS Karen Bell is a 42 year old female who presents today for an evaluation of abdominal pain and diarrhea alternating with constipation that has been ongoing since last fall. Has had c.difficile twice, once in 2015, and once in the fall of 2016, treated 4 times, with oral vancomycin x 2, then oral flagyl, and one course with dificid taper for 40 days. Has had 2 negative c.difficile PCRs since then. However, continues to have abdominal pain, diarrhea, constipation, gas, bloating. Has lost 10 lbs during this entire ordeal. Was on Probiotic while on dificid, but not recently. Has been drinking Kefir. Really only on an expanded FLASH diet. Took clindamycin for dental procedure the first episode. For the second episode, took keflex for post- mastitis. Drinks 1-2 cups of regular coffee per day. C. difficile PCR CCM Negative for C. difficile toxin by PCR Enteric bacterial panel negative Fecal lactoferrin negative H.pylori antibody. Not taking acid suppression PAST MEDICAL HISTORY Diagnosis Date - C. difficile colitis 2015 PAST SURGICAL HISTORY Procedure Laterality Date - PAST SURGICAL HISTORY OF x 4 - PAST SURGICAL HISTORY OF 2011 L elbow replacement s/p injury No current outpatient prescriptions on file. No current facility-administered medications for this visit. 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 Social History Main Topics Smoking status: Never Smoker Smokeless tobacco: Never Used Alcohol use: Yes 1.5 oz/week Glasses of Wine (5oz): 1 per week Drug use: No Sexual activity: Yes Partners with: Male Comment: natural family planning Social History Narrative 3 kids Natural family planning FAMILY HISTORY (grandparents, parents, brothers, sisters, aunts, or uncles) Liver Problems: No Ulcerative Colitis: No Crohn's Disease: No Colon Cancer: No Colon Polyps: No IBS: No Celiac disease: No Bleeding Disorders: No GI SPECIFIC REVIEW OF SYMPTOMS Difficulty swallowing / foods sticking in throat: no Heartburn: no Hoarseness: no Chronic cough: no Regurgitation: no Chest pain: no Filling up quickly at meals:no Loss of appetite: no Nausea: no Vomiting: no Abdominal pain: yes Recent change in bowel movements: no Bloody or black, bowel movements: no Constipation: yes Diarrhea: yes Loss of control of bowel movements: no Night sweats: no Fever: no Chills: no Thought or memory problems: no Fluid in abdomen (ascites): no Prominent leg swelling: no Vomiting blood: no Recent change in weight: Yes, 10 lbs. REVIEW OF SYSTEMS EyesNegative for vision changes, diplopia or epiphora. Ears, Mouth, nose, throat:No problems Cardiovascular: No Problems Respiratory: Negative for cough, wheezing and shortness of breath Gastrointestinal : No problems Genitourinary: Negative Musuloskeletal: Denies significant problems Integumentary: no rashes, lesions, or jaundice Neurological: No history of neurologic problems Endocrine: Negative for cold or heat intolerance, polyuria, polydipsia and goiter. Psychiatric: Cooperative and agreeable Allergic/ Immunologic: Negative All others negative PAST MEDICAL HISTORY Colon polyps: no Colon cancer: no Other cancer: no Radiation / Chemotherapy: no Crohn's disease / Ulcerative colitis: no High cholesterol or triglycerides: no Ulcers: no Gallstones: no Hepatitis / Jaundice: no Heart Disease: no Lung Disease: no Liver problems: no Thyroid disease: no Kidney stones: no Pancreatitis: no Diabetes: no Arthritis: no Rheumatic fever: no Gastrointestinal bleeding: no Depression or other mental illness: no Other personal illness: as above. PHYSICAL EXAMINATION BP 130/70 Pulse 70 Wt 115 lb (52.2kg) General Appearance: Well appearing, alert, in no acute distress, well-hydrated, well nourished. Eyes: PERRLA, conjunctiva and sclera normal Oropharynx: Lips, tongue, and oral mucosa normal. There is no thrush or oral ulcers. Lungs:breath sounds clear to auscultation bilaterally, no crackles, rhonchi, or wheezes Heart: regular rate and rhythm, no murmurs or gallops. Abdomen: not distended, normal bowel sounds, soft and depressible, no guarding or rebound, no palpable mass, no organomegaly Rectal exam: Deferred. Extremities: no cyanosis or edema Skin: no jaundice, no spider angiomas, no palmar erythema Neuro:alert, oriented x 3, pleasant and in no acute distress RECENT LABS CBC: WBC (k/uL) Date Value 08/07/2017 8.75 10/04/2015 8.15 Hematocrit (%) Date Value 08/07/2017 43.6 MCV (fL) Date Value 08/07/2017 94.2 Platelet Count (k/uL) Date Value 08/07/2017 310 Lymph% (%) Date Value 10/04/2015 35.8 Comprehensive Metabolic Panel: Glucose (mg/dL) Date Value 08/07/2017 89 BUN (mg/dL) Date Value 08/07/2017 19 Creatinine (mg/dL) Date Value 08/07/2017 0.65 Sodium (mmol/L) Date Value 08/07/2017 139 Potassium (mmol/L) Date Value 08/07/2017 4.2 Chloride (mmol/L) Date Value 08/07/2017 101 CO2 (mmol/L) Date Value 08/07/2017 26 Protein, Total (g/dL) Date Value 08/07/2017 7.7 Albumin (g/dL) Date Value 08/07/2017 4.6 Calcium (mg/dL) Date Value 08/07/2017 9.7 Alkaline Phosphatase (U/L) Date Value 08/07/2017 70 Bilirubin, Total (mg/dL) Date Value 08/07/2017 0.6 AST (U/L) Date Value 08/07/2017 17 ALT (U/L) Date Value 08/07/2017 6 (L) Assessment IMPRESSION Ms. Bell is a 42 year old year old female who presents with recurrent c.difficile infection, currently clear, but with post-infectious symptoms. Spent a good amount of time discussing risks of recurrence. PLAN ASSESSMENT/PLAN: 1. Irritable bowel syndrome with both constipation and diarrhea - ICD9: 564.1, ICD10: K58.2 - DICYCLOMINE 20 MG TABLET Plan is to follow up in three months. David Ely MD December 04, 2017 2:07 PM MUKUND Observed: 12/04/2017 Status: COMPLETED Source: [place] 2:00 PM [facility] REPOSITORY Office Visit (PORTIA) KAREN BELL ([id number]) 1975 F Date Time Provider Department 12/04/17 2:00 PM DAVID ELY During your visit today, we recorded the following information about you: Pulse Blood pressure Weight 70/minute 130/70 52.2 kg David Ely MD 12/04/2017 2:26 PM Signed DEPARTMENT OF GASTROENTEROLOGY - NEW PATIENT/CONSULT REASON FOR VISIT Karen Bell is a 42 year old female who is scheduled at the request of Juvenal Ordoñez for history c diff. My final recommendations will be communicated back to the requesting physician by the way of the shared medical record, fax, or via US Mail HISTORY OF PRESENT ILLNESS Karen Bell is a 42 year old female who presents today for an evaluation of abdominal pain and diarrhea alternating with constipation that has been ongoing since last fall. Has had c.difficile twice, once in 2015, and once in the fall of 2016, treated 4 times, with oral vancomycin x 2, then oral flagyl, and one course with dificid taper for 40 days. Has had 2 negative c.difficile PCRs since then. However, continues to have abdominal pain, diarrhea, constipation, gas, bloating. Has lost 10 lbs during this entire ordeal. Was on Probiotic while on dificid, but not recently. Has been drinking Kefir. Really only on an expanded FLASH diet. Took clindamycin for dental procedure the first episode. For the second episode, took keflex for post- mastitis. Drinks 1-2 cups of regular coffee per day. C. difficile PCR CCM Negative for C. difficile toxin by PCR Enteric bacterial panel negative Fecal lactoferrin negative H.pylori antibody. Not taking acid suppression PAST MEDICAL HISTORY Diagnosis Date - C. difficile colitis 2016 PAST SURGICAL HISTORY Procedure Laterality Date - PAST SURGICAL HISTORY OF x 4 - PAST SURGICAL HISTORY OF 2012 L elbow replacement s/p injury No current outpatient prescriptions on file. No current facility-administered medications for this visit. 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 Social History Main Topics Smoking status: Never Smoker Smokeless tobacco: Never Used Alcohol use: Yes 1.5 oz/week Glasses of Wine (5oz): 1 per week Drug use: No Sexual activity: Yes Partners with: Male Comment: natural family planning Social History Narrative 3 kids Natural family planning FAMILY HISTORY (grandparents, parents, brothers, sisters, aunts, or uncles) Liver Problems: No Ulcerative Colitis: No Crohn's Disease: No Colon Cancer: No Colon Polyps: No IBS: No Celiac disease: No Bleeding Disorders: No GI SPECIFIC REVIEW OF SYMPTOMS Difficulty swallowing / foods sticking in throat: no Heartburn: no Hoarseness: no Chronic cough: no Regurgitation: no Chest pain: no Filling up quickly at meals:no Loss of appetite: no Nausea: no Vomiting: no Abdominal pain: yes Recent change in bowel movements: no Bloody or black, bowel movements: no Constipation: yes Diarrhea: yes Loss of control of bowel movements: no Night sweats: no Fever: no Chills: no Thought or memory problems: no Fluid in abdomen (ascites): no Prominent leg swelling: no Vomiting blood: no Recent change in weight: Yes, 10 lbs. REVIEW OF SYSTEMS EyesNegative for vision changes, diplopia or epiphora. Ears, Mouth, nose, throat:No problems Cardiovascular: No Problems Respiratory: Negative for cough, wheezing and shortness of breath Gastrointestinal : No problems Genitourinary: Negative Musuloskeletal: Denies significant problems Integumentary: no rashes, lesions, or jaundice Neurological: No history of neurologic problems Endocrine: Negative for cold or heat intolerance, polyuria, polydipsia and goiter. Psychiatric: Cooperative and agreeable Allergic/ Immunologic: Negative All others negative PAST MEDICAL HISTORY Colon polyps: no Colon cancer: no Other cancer: no Radiation / Chemotherapy: no Crohn's disease / Ulcerative colitis: no High cholesterol or triglycerides: no Ulcers: no Gallstones: no Hepatitis / Jaundice: no Heart Disease: no Lung Disease: no Liver problems: no Thyroid disease: no Kidney stones: no Pancreatitis: no Diabetes: no Arthritis: no Rheumatic fever: no Gastrointestinal bleeding: no Depression or other mental illness: no Other personal illness: as above. PHYSICAL EXAMINATION BP 130/70 Pulse 70 Wt 115 lb (52.2kg) General Appearance: Well appearing, alert, in no acute distress, well-hydrated, well nourished. Eyes: PERRLA, conjunctiva and sclera normal Oropharynx: Lips, tongue, and oral mucosa normal. There is no thrush or oral ulcers. Lungs:breath sounds clear to auscultation bilaterally, no crackles, rhonchi, or wheezes Heart: regular rate and rhythm, no murmurs or gallops. Abdomen: not distended, normal bowel sounds, soft and depressible, no guarding or rebound, no palpable mass, no organomegaly Rectal exam: Deferred. Extremities: no cyanosis or edema Skin: no jaundice, no spider angiomas, no palmar erythema Neuro:alert, oriented x 3, pleasant and in no acute distress RECENT LABS CBC: WBC (k/uL) Date Value 08/07/2017 8.75 10/04/2015 8.15 Hematocrit (%) Date Value 08/07/2017 43.6 MCV (fL) Date Value 08/07/2017 94.2 Platelet Count (k/uL) Date Value 08/07/2017 310 Lymph% (%) Date Value 10/04/2015 35.8 Comprehensive Metabolic Panel: Glucose (mg/dL) Date Value 08/07/2017 89 BUN (mg/dL) Date Value 08/07/2017 19 Creatinine (mg/dL) Date Value 08/07/2017 0.65 Sodium (mmol/L) Date Value 08/07/2017 139 Potassium (mmol/L) Date Value 08/07/2017 4.2 Chloride (mmol/L) Date Value 08/07/2017 101 CO2 (mmol/L) Date Value 08/07/2017 26 Protein, Total (g/dL) Date Value 08/07/2017 7.7 Albumin (g/dL) Date Value 08/07/2017 4.6 Calcium (mg/dL) Date Value 08/07/2017 9.7 Alkaline Phosphatase (U/L) Date Value 08/07/2017 70 Bilirubin, Total (mg/dL) Date Value 08/07/2017 0.6 AST (U/L) Date Value 08/07/2017 17 ALT (U/L) Date Value 08/07/2017 6 (L) Assessment IMPRESSION Ms. Bell is a 42 year old year old female who presents with recurrent c.difficile infection, currently clear, but with post-infectious symptoms. Spent a good amount of time discussing risks of recurrence. PLAN ASSESSMENT/PLAN: 1. Irritable bowel syndrome with both constipation and diarrhea - ICD9: 564.1, ICD10: K58.2 - DICYCLOMINE 20 MG TABLET Plan is to follow up in three months. David Ely MD December 04, 2017 2:07 PM Referring Provider: JUVENAL ORDOÑEZ) [[id number]] Allergies As of Date: 12/04/2017 Noted Allergy Reaction ADHESIVE TAPE (ROSINS) 10/19/2013 2 - Rash PENICILLINS 10/19/2013 2 - Rash SULFA (SULFONAMIDE ANTIBIOTICS) 09/08/2015 5 - Intolerance Date Reviewed: 12/04/2017 Reviewed by: Danii Genao Ma - Fully Assessed Reason for Visit: history c diff [Other] Visit Diagnosis:Irritable bowel syndrome with both constipation and diarrhea [K58.2] Order(s):dicyclomine (BENTYL) 20 mg tabletTake 1 tablet by mouth three times daily as needed.Disp: 100 tabletRfl: 3 Prescriptions as of 12/04/2017 Sig: DICYCLOMINE 20 MG TABLET Take 1 tablet by mouth three * Problem List As Of Date 12/04/2017 Noted Resolved Enterocolitis due to Clostridium difficile [A04*INVALID FOR* More... Recurrent UTI [N39.0] INVALID FOR* More... Irritable bowel syndrome with both constipation*INVALID FOR* Prescriptions ordered this encounter Disp Refills Start End DICYCLOMINE 20 MG TABLET 100 * 3 12/04/2017 Route: ORAL Sig: Take 1 tablet by mouth three times daily as needed. Follow-up and Disposition History Recorded Encounter Status:Closed by DAVID ELY MD on 12/04/17 CNCO Observed: 11/11/2017 Status: COMPLETED Source: [place] 12:38 PM [facility] REPOSITORY HNO ID: [id number] Author: Mammography Coordinator Service: (none) Author Type: Physician Type: Letter Filed: 11/12/2017 11:32 PM Note Text: November 11, 2017 PID: [id number] Karen Bell [address] [place] [address] Dear Ms. Bell, We are pleased to inform you that the results of your recent breast imaging exam on 11/11/2017 are normal and we recommend that you return to your annual screening Mammography schedule. Early detection of cancer is very important. We also understand recommendations regarding breast cancer screening are controversial. Please discuss with your primary care provider which strategy is best for you and whether a mammogram is right for you. Your imaging studies and report will be kept on file at [facility] as part of your permanent medical record and are available for your continuing care. Thank you for allowing us to help in meeting your health care needs. Sincerely, Dr. Blanco Interpreting Radiologist [facility] (Return to Annual Mammogram schedule) CNCO Observed: 11/11/2017 Status: COMPLETED Source: [place] 12:38 PM [facility] REPOSITORY HNO ID: [id number] Author: Mammography Coordinator Service: (none) Author Type: Physician Type: Letter Filed: 11/12/2017 11:32 PM Note Text: November 11, 2017 PID: [id number] Karen Bell [address] [place] [address] Dear Ms. Bell, We are pleased to inform you that the results of your recent breast imaging exam on 11/11/2017 are normal and we recommend that you return to your annual screening Mammography schedule. Early detection of cancer is very important. We also understand recommendations regarding breast cancer screening are controversial. Please discuss with your primary care provider which strategy is best for you and whether a mammogram is right for you. Your imaging studies and report will be kept on file at [facility] as part of your permanent medical record and are available for your continuing care. Thank you for allowing us to help in meeting your health care needs. Sincerely, Dr. Blanco Interpreting Radiologist [facility] (Return to Annual Mammogram schedule) PROGRESS Observed: 11/11/2017 Status: COMPLETED Source: [place] 12:15 PM [facility] [place] REPOSITORY HNO ID: [id number] Author: Yaneth Jaimes Rt Service: (none) Author Type: (none) Type: Progress Notes Filed: 11/11/2017 12:16 PM Note Text: Radiology Service Progress Note PATIENT NAME: Karen Bell DATE OF SERVICE: November 11, 2017 TIME: 12:15 PM PATIENT IDENTITY VERIFICATION COMPLETED USING TWO (2) METHODS: Patient confirmed name verbally and Date of . PATIENT GENDER DATA: Female. status: : No status: NO. PATIENT RELEVANT IMPLANT DATA REVIEWED: Not Applicable RADIOLOGY DEPARTMENT: [facility] BILATERAL DIAGNOSTIC MAMMOGRAM PERIPHERAL IV DATA: Not applicable SIGNED BY: Yaneth Bowden November 11, 2017 12:15 PM PROGRESS Observed: 11/11/2017 Status: COMPLETED Source: [place] 11:50 AM [facility] REPOSITORY O ID: [id number] Author: Ester Renee Service: (none) Author Type: Set Up Operator Tool Type: Progress Notes Filed: 11/11/2017 11:51 AM Note Text: Radiology Service Progress Note PATIENT NAME: Karen Bell DATE OF SERVICE: November 11, 2017 TIME: 11:50 AM PATIENT IDENTITY VERIFICATION COMPLETED USING TWO (2) METHODS: Patient confirmed name verbally and Date of . PATIENT GENDER DATA: Female. status: : No status: N/A PATIENT RELEVANT IMPLANT DATA REVIEWED: Not Applicable RADIOLOGY DEPARTMENT: Ultrasound PERIPHERAL IV DATA: Not applicable SIGNED BY: ESTER RENEE RDMS Binh November 11, 2017 11:50 AM [employer] Observed: 11/11/2017 Status: F Source: [facility] 11:43 AM [facility] REPOSITORY * * *Final Report* * * DATE OF EXAM: Nov 11 2017 11:43AM WRU 0593 - [facility] BREAST LTD LT / PROCEDURE REASON: Unspecified lump in the left breast, unspecified quadrant * * * * Physician Interpretation * * * * #[id number] - [facility] BILATERAL DIGITAL DIAGNOSTIC MAMMOGRAM WITH CAD: 11/11/2017 HISTORY: Lump In The Left Breast/Bilateral Diagnostic Mammogram /This is the patient's baseline mammogram. RESULT: TECHNIQUE: The study was acquired using full field digital technology and interpreted from soft copy. Current study was also evaluated with a Computer Aided Detection (CAD). No prior exams were available for comparison. The tissue of both breasts is heterogeneously dense. This may lower the sensitivity of mammography. No significant masses, calcifications, or other findings are seen in either breast. NEGATIVE There is no abnormality seen in the left breast to correspond with the palpable abnormality, however, clinical correlation is recommended. There is no mammographic evidence of malignancy. #[id number] - [facility] US BREAST LTD LT ULTRASOUND OF LEFT BREAST: 11/11/2017 RESULT: No prior exams were available for comparison. Real-time ultrasound of the left breast was performed. There is a benign 0.6 cm x 0.2 cm x 0.5 cm oval lymph node with a circumscribed margin in the left breast at 11 o'clock posterior depth 5 cm from the nipple. This oval lymph node is hypoechoic with a well-defined boundary and fatty hilum. This correlates as palpated. IMPRESSION: BENIGN FINDING There is no sonographic evidence of malignancy. The 0.6 cm x 0.2 cm x 0.5 cm oval lymph node in the left breast is benign. Return to annual mammogram screening schedule is recommended. Nalini kaplan/josh:11/11/2017 12:38:40 Roof Truss Machine Tender: Yaneth BOWDEN(Roxanna)(Jesse), [facility] letter sent: Return to Annual Mammogram BI-RADS: 1 Negative Ultrasound BI-RADS: 2 Benign finding Assistant Food Service Manager: Josh Transcribe Date/Time: Nov 11 2017 10:38A Dictated by : NALINI BLANCO MD This examination was interpreted and the report reviewed and electronically signed by: NALINI BLANCO MD on Nov 11 2017 12:38PM EST [id number] [facility] Observed: 11/11/2017 Status: F Source: [place] 11:06 AM [facility] REPOSITORY * * *Final Report* * * DATE OF EXAM: Nov 11 2017 11:06AM WRW 0620 - [facility] DIAGNOSTIC [facility] / PROCEDURE REASON: Unspecified lump in the left breast, unspecified quadrant * * * * Physician Interpretation * * * * RESULT: #[id number] - [facility] BILATERAL DIGITAL DIAGNOSTIC MAMMOGRAM WITH CAD: 11/11/2017 HISTORY: Lump In The Left Breast/Bilateral Diagnostic Mammogram /This is the patient's baseline mammogram. RESULT: TECHNIQUE: The study was acquired using full field digital technology and interpreted from soft copy. Current study was also evaluated with a Computer Aided Detection (CAD). No prior exams were available for comparison. The tissue of both breasts is heterogeneously dense. This may lower the sensitivity of mammography. No significant masses, calcifications, or other findings are seen in either breast. NEGATIVE There is no abnormality seen in the left breast to correspond with the palpable abnormality, however, clinical correlation is recommended. There is no mammographic evidence of malignancy. #[id number] - [facility] US BREAST LTD LT ULTRASOUND OF LEFT BREAST: 11/11/2017 RESULT: No prior exams were available for comparison. Real-time ultrasound of the left breast was performed. There is a benign 0.6 cm x 0.2 cm x 0.5 cm oval lymph node with a circumscribed margin in the left breast at 11 o'clock posterior depth 5 cm from the nipple. This oval lymph node is hypoechoic with a well-defined boundary and fatty hilum. This correlates as palpated. IMPRESSION: BENIGN FINDING There is no sonographic evidence of malignancy. The 0.6 cm x 0.2 cm x 0.5 cm oval lymph node in the left breast is benign. Return to annual mammogram screening schedule is recommended. Nalini kaplan/josh:11/11/2017 12:38:40 Roof Truss Machine Tender: Yaneth RICHARDSON)(Jesse), [facility] letter sent: Return to Annual Mammogram BI-RADS: 1 Negative Ultrasound BI-RADS: 2 Benign finding Assistant Food Service Manager: Josh Transcribe Date/Time: Nov 11 2017 10:38A Dictated by: NALINI BLANCO MD This examination was interpreted and the report reviewed and electronically signed by: NALINI BLANCO MD on Nov 11 2017 12:38PM EST [id number] C DIFFICILE PCR Collected: 10/22/2017 Status: F Source: [place] 12:00 PM [facility] REPOSITORY TYPE CODE TESTS RESULT OUT OF REFERENCE UNITS RANGE LAB CDFRES C difficile PCR Negative for C. difficile toxin by PCR Performed By: #### CDPCR #### [facility] [address] [place], [place] [address] ABD SPLEEN -NB Observed: 09/22/2017 Status: F Source: [place] 11:16 AM [facility] REPOSITORY * * *Final Report* * * DATE OF EXAM: Sep 22 2017 11:16AM WRU [id number] - US ABD SPLEEN -NB / PROCEDURE REASON: Right upper quadrant pain * * * * Physician Interpretation * * * * EXAMINATION: US ABD RIGHT UPPER QUADRANT, US ABD SPLEEN -NB CLINICAL HISTORY: Right upper quadrant pain and diarrhea Comparison: None RESULT: The liver is normal in size and echogenicity without focal abnormality or mass. No intrahepatic biliary dilatation is seen. Pancreas is normal in size and echogenicity, without focal enlargement or pancreatitis. Sonographic examination demonstrates a nondistended gallbladder without evidence of any stones within it. Common duct is normal in caliber. Right kidney is 10.5 cm in length. No hydronephrosis. The spleen appears normal. 10 cm in length. No focal splenic abnormality is seen. No ascites is identified. IMPRESSION: Normal right upper quadrant ultrasound. Normal spleen. Assistant Food Service Manager: ERIN Transcribe Date/Time: Sep 22 2017 4:32P Dictated by : JOS HERR MD This examination was interpreted and the report reviewed and electronically signed by: JOS HERR MD on Sep 22 2017 4:34PM EST [id number] US ABD RIGHT UPPER Observed: 09/22/2017 Status: F Source: [facility] 11:16 AM [facility] REPOSITORY * * *Final Report* * * DATE OF EXAM: Sep 22 2017 11:16AM U 1032 - US ABD RIGHT UPPER QUADRANT / PROCEDURE REASON: Right upper quadrant pain * * * * Physician Interpretation * * * * EXAMINATION: US ABD RIGHT UPPER QUADRANT, US ABD SPLEEN -NB CLINICAL HISTORY: Right upper quadrant pain and diarrhea Comparison: None RESULT: The liver is normal in size and echogenicity without focal abnormality or mass. No intrahepatic biliary dilatation is seen. Pancreas is normal in size and echogenicity, without focal enlargement or pancreatitis. Sonographic examination demonstrates a nondistended gallbladder without evidence of any stones within it. Common duct is normal in caliber. Right kidney is 10.5 cm in length. No hydronephrosis. The spleen appears normal. 10 cm in length. No focal splenic abnormality is seen. No ascites is identified. IMPRESSION: Normal right upper quadrant ultrasound. Normal spleen. Assistant Food Service Manager: [facility] Transcribe Date/Time: Sep 22 2017 4:32P Dictated by : JOS HERR MD This examination was interpreted and the report reviewed and electronically signed by: JOS HERR MD on Sep 22 2017 4:34PM EST [id number] PROGRESS Observed: 09/22/2017 Status: COMPLETED Source: [place] 10:45 AM [facility] [place] REPOSITORY HNO ID: [id number] Author: Cher Mccarty Rdms Service: (none) Author Type: (none) Type: Progress Notes Filed: 09/22/2017 11:16 AM Note Text: Radiology Service Progress Note PATIENT NAME: Karen Bell DATE OF SERVICE: September 22, 2017 TIME: 10:45 AM PATIENT IDENTITY VERIFICATION COMPLETED USING TWO (2) METHODS: Patient confirmed name verbally and Date of . PATIENT GENDER DATA: Female. status: : No status: NO. PATIENT RELEVANT IMPLANT DATA REVIEWED: Not Applicable RADIOLOGY DEPARTMENT: Ultrasound PERIPHERAL IV DATA: Not applicable SIGNED BY: Cher Mccarty Rdms September 22, 2017 10:45 AM C DIFFICILE PCR Collected: 09/22/2017 Status: F Source: [place] 5:45 AM [facility] REPOSITORY TYPE CODE TESTS RESULT OUT OF REFERENCE UNITS RANGE LAB CDFRES C difficile PCR Negative for C. difficile toxin by PCR Performed By: #### CDPCR #### [facility] [address] [address] Observed: 09/22/2017 Status: F Source: [place] FECAL LACTOFERRIN 5:45 AM [facility] REPOSITORY Sp. Request/Comment: - Specimen received in sterile container. Test Result - Negative for lactoferrin, which may indicate the absence of fecal white blood cells Performed By: #### STLWBC #### [facility] [employer] [address] [address] ENTERIC BACT PNL PCR Collected: 09/22/2017 Status: F Source: [place] 5:45 AM [facility] REPOSITORY TYPE CODE TESTS RESULT OUT OF REFERENCE UNITS RANGE LAB PCRSHG Shigella/EIEC Not Detected DNA LAB PCRCMP Campy jejun/coli DNA Not Detected LAB PCRSTX Shiga toxin gene(s) Not Detected LAB PCRSAL Salmonella spp. Not Detected DNA Performed By: #### STLPCR #### [facility] [employer] [address] [place], [place] [address] Observed: 09/22/2017 Status: F Source: [place] HPYLORI AG EIA STOOL 5:45 AM [facility] REPOSITORY Sp. Request/Comment: - Specimen received in sterile container. Test Result - Negative for Helicobacter pylori Antigen by EIA. Performed By: #### HPYLAG #### [facility] [employer] [address] [place] [id number] PROGRESS Observed: 09/21/2017 Status: COMPLETED Source: [place] 8:40 AM [facility] REPOSITORY HNO ID: [id number] Author: Mireille Morrison) Tg Service: (none) Author Type: Nurse Practitioner Type: Progress Notes Filed: 09/21/2017 9:08 AM Note Text: 09/21/2017 Patient presents with: Abdominal Pain: with loose stool AND low grade fever x 12 days SUBJECTIVE: This is a 42 year old that is here today for diarrhea and RUQ pain. She states that it started September 09 and with stomach upset and some loose stools. These symptoms persisted and the RUQ pain started shortly after. Stools are loose, but not watery. She states that she does not feel that it is like when she had c-diff, but that is on her mind. She states that she has just started to eat more normal from when she finished her last dose of dificid on 08/12. She states that she had been feeling ok since but stayed on a bland diet for a while to be sure. Around 08/30, she started to eat more normal with easter meal and candy. Admits that she was not eating completely normal. Since these symptoms started back, she returned to a bland diet. She states that she has a little bit of anxiety toward this dur to the prolonged treatment course she required. The RUQ pain is described as an ache that comes and goes. Occasionally over the whole upper abdomen. Does not interfere with what she is doing, but it is bothersome. Also having more bloating and gurgling. Over the weekend she feels that she had a fever and chills. Denies any urinary symptoms. PAST MEDICAL HISTORY Diagnosis Date - C. difficile colitis 2016 ALLERGIES Adhesive Tape (Rosins); Penicillins; Sulfa (Sulfonamide Antibiotics) MEDICATIONS No current outpatient prescriptions on file. No current facility-administered medications for this visit. Medications and allergies reviewed by this provider. SOCIAL HISTORY Social History Marital status: Spouse name: Years of education: Number of children: Occupational History Occupation Employer Comment stay at home Social History Main Topics Smoking status: Never Smoker Smokeless status: Never Used Alcohol use: Yes 1.5 oz/week 1 Glasses of Wine (5oz) per week Drug use: No Sexual activity: Yes Partners with: Male Comment: natural family planning Social History Narrative 3 kids Natural family planning REVIEW OF SYSTEMS see HPI OBJECTIVE: BP 102/82 (BP Site: Left Arm, BP Position: Sitting, BP Cuff Size: Regular Adult) Pulse 82 Temp 36.5 ?C (97.7 ?F) (Right Tympanic) Resp 16 Wt 54.2 kg (119 lb 6.4 oz) LMP 09/19/2017 (Exact Date) SpO2 100% BMI 19.87 kg/m2. Vital signs reviewed by this provider. PHYSICAL EXAMINATION: General appearance: Well appearing, alert, in no acute distress, well-hydrated, well nourished. Skin: Skin color, texture, turgor normal, no suspicious rashes or lesions Lungs: Lungs clear to auscultation. No wheezing, rhonchi, rales Heart: RRR without murmur, gallop, or rubs. No ectopy Abdomen: Abdomen soft. Bowel sounds normal. No masses, organomegaly, Positive findings: tenderness mild generalized- no guarding or rebound tenderness. ASSESSMENT/PLAN: 1. Diarrhea of presumed infectious origin - ICD9: 009.3, ICD10: R19.7 (primary diagnosis) - could be related to introducing normal diet back after a long course of a bland diet, but with history of c-diff would like to rule that out and other infectious causes. - encouraged to continue bland diet and monitor for any triggers - encouraged to stay hydrated with water and avoid caffeine - C. DIFFICILE PCR - FECAL LACTOFERRIN/LEUKOCYTES - ENTERIC BACTERIAL PANEL BY PCR - H PYLORI AG BY EIA,STOOL 2. RUQ pain - ICD9: 789.01, ICD10: R10.11 Differential Diagnosis includes Gastritis and Gall bladder colic/cholelithiasis - Labs of H pylori Antibodies, Stool for C diff and Stool studies - Work up with RUQ ultrasound - Swift low residue diet - US ABD RT UPPER QUADRANT 3. H/O Clostridium difficile infection - ICD9: V12.09, ICD10: Z86.19 - if positive again will refer to ID and GI after starting treatment Mireille Dave APRN.[employer]ISH [employer]ER CNOV Observed: 09/21/2017 Status: COMPLETED Source: [place] 8:20 AM [facility] REPOSITORY Office Visit (FAMPWS) KAREN BELL ([id number]) 1975 F Date Time Provider Department 09/21/17 8:20 AM MIREILLE DAVE (JEN) FAMPWS During your visit today, we recorded the following information about you: Temperature Pulse Respiration Blood pressure 97.7 degrees 82/minute 16/minute 102/82 Weight Last Period 54.2 kg 09/19/17 Mireille Dave APRN.JEN 09/21/2017 9:08 AM Signed 09/21/2017 Patient presents with: Abdominal Pain: with loose stool ANDamp; low grade fever x 12 days SUBJECTIVE: This is a 42 year old that is here today for diarrhea and RUQ pain. She states that it started September 09 and with stomach upset and some loose stools. These symptoms persisted and the RUQ pain started shortly after. Stools are loose, but not watery. She states that she does not feel that it is like when she had c-diff, but that is on her mind. She states that she has just started to eat more normal from when she finished her last dose of dificid on 08/12. She states that she had been feeling ANDquot;okANDquot; since but stayed on a bland diet for a while to be sure. Around 08/30, she started to eat more normal with easter meal and candy. Admits that she was not eating completely normal. Since these symptoms started back, she returned to a bland diet. She states that she has a little bit of anxiety toward this dur to the prolonged treatment course she required. The RUQ pain is described as an ache that comes and goes. Occasionally over the whole upper abdomen. Does not interfere with what she is doing, but it is bothersome. Also having more bloating and ANDquot;gurglingANDquot;. Over the weekend she feels that she had a fever and chills. Denies any urinary symptoms. PAST MEDICAL HISTORY Diagnosis Date - C. difficile colitis 2015 ALLERGIES Adhesive Tape (Rosins); Penicillins; Sulfa (Sulfonamide Antibiotics) MEDICATIONS No current outpatient prescriptions on file. No current facility-administered medications for this visit. Medications and allergies reviewed by this provider. SOCIAL HISTORY Social History Marital status: Spouse name: Years of education: Number of children: Occupational History Occupation Employer Comment stay at home Social History Main Topics Smoking status: Never Smoker Smokeless status: Never Used Alcohol use: Yes 1.5 oz/week 1 Glasses of Wine (5oz) per week Drug use: No Sexual activity: Yes Partners with: Male Comment: natural family planning Social History Narrative 3 kids Natural family planning REVIEW OF SYSTEMS see HPI OBJECTIVE: BP 102/82 (BP Site: Left Arm, BP Position: Sitting, BP Cuff Size: Regular Adult) Pulse 82 Temp 36.5 ?C (97.7 ?F) (Right Tympanic) Resp 16 Wt 54.2 kg (119 lb 6.4 oz) LMP 09/19/2017 (Exact Date) SpO2 100% BMI 19.87 kg/m2. Vital signs reviewed by this provider. PHYSICAL EXAMINATION: General appearance: Well appearing, alert, in no acute distress, well-hydrated, well nourished. Skin: Skin color, texture, turgor normal, no suspicious rashes or lesions Lungs: Lungs clear to auscultation. No wheezing, rhonchi, rales Heart: RRR without murmur, gallop, or rubs. No ectopy Abdomen: Abdomen soft. Bowel sounds normal. No masses, organomegaly, Positive findings: tenderness mild generalized- no guarding or rebound tenderness. ASSESSMENT/PLAN: 1. Diarrhea of presumed infectious origin - ICD9: 009.3, ICD10: R19.7 (primary diagnosis) - could be related to introducing normal diet back after a long course of a bland diet, but with history of c-diff would like to rule that out and other infectious causes. - encouraged to continue bland diet and monitor for any triggers - encouraged to stay hydrated with water and avoid caffeine - C. DIFFICILE PCR - FECAL LACTOFERRIN/LEUKOCYTES - ENTERIC BACTERIAL PANEL BY PCR - H PYLORI AG BY EIA,STOOL 2. RUQ pain - ICD9: 789.01, ICD10: R10.11 Differential Diagnosis includes Gastritis and Gall bladder colic/cholelithiasis - Labs of H pylori Antibodies, Stool for C diff and Stool studies - Work up with RUQ ultrasound - Swift low residue diet - US ABD RT UPPER QUADRANT 3. H/O Clostridium difficile infection - ICD9: V12.09, ICD10: Z86.19 - if positive again will refer to ID and GI after starting treatment Mireille Dave APRN.[employer] FINISH [employer]AYER Referring Provider: SELF [[id number]] Allergies As of Date: 09/21/2017 Noted Allergy Reaction ADHESIVE TAPE (ROSINS) 10/19/2013 2 - Rash PENICILLINS 10/19/2013 2 - Rash SULFA (SULFONAMIDE ANTIBIOTICS) 09/08/2015 5 - Intolerance Date Reviewed: 09/21/2017 Reviewed by: Avery Duron Ma - Fully Assessed Reason for Visit: Abdominal Pain [1] Cmt: with loose stool AND low grade fever x 12 days Reason For Visit History Recorded Primary Visit Diagnosis:Diarrhea of presumed infectious origin [R19.7] Other Visit Diagnoses:RUQ pain [R10.11] H/O Clostridium difficile infection [Z86.19] Order(s):C. DIFFICILE PCR [SQCDPCR] Order #: [id number] FECAL LACTOFERRIN/LEUKOCYTES [SQFECWBC] Order #: [id number] ENTERIC BACTERIAL PANEL BY PCR [SQSTLPCR] Order #: [id number] FUTURE US ABD RT UPPER QUADRANT [[id number]] Order #: [id number] FUTURE H PYLORI AG BY EIA,STOOL [SQHPYLAG] Order #: [id number] Problem List As Of Date 09/21/2017 Noted Resolved Enterocolitis due to Clostridium difficile [A04*INVALID FOR* More... Recurrent UTI [N39.0] INVALID FOR* More... Encounter Status:Closed by MIREILLE DAVE on 09/21/17 COMP METABOLIC PANEL Collected: 08/07/2017 Status: F Source: [place] 4:06 PM [facility] RE[facility] TYPE CODE TESTS RESULT OUT OF REFERENCE UNITS RANGE LAB TP 6.3-8.0 g/dL Protein, Total 7.7 LAB ALB 3.9-4.9 g/dL Albumin 4.6 LAB CA 8.5-10.2 mg/dL Calcium, Total 9.7 LAB TBIL 0.2-1.3 mg/dL Bilirubin, Total 0.6 LAB ALKP 32-117 U/L Alkaline Phosphatase 70 LAB AST 13-35 U/L AST 17 LAB GLU 74-99 mg/dL Glucose 89 Result Comment: The [place] Diabetes Association (ADA) provides guidance for cutoff values for fasting glucose and random glucose. The ADA defines fasting as no caloric intake for at least 8 hours. Fas ting plasma glucose results between 100 to 125 mg/dL indicate increased risk for diabetes (prediabetes). Fasting plasma glucose results greater than or equal to 126 mg/dL meet the criteria for diagnosis of diabetes. In the absence of unequivocal hyperglycemia, results should be confirmed by repeat testing. In a patient with classic symptoms of hyperglycemia or hyperglycemic crisis, random plasma glucose results greater than or equal to 200 mg/dL meet the criteria for diagnosis of diabetes. Reference: Standards of Medical Care in Diabetes 2016, [place] Diabetes Association. Diabetes Care. 2016.39(Suppl 1). LAB BUN 7-21 mg/dL BUN 19 LAB CRET 0.58-0.96 mg/dL Creatinine 0.65 LAB NA 136-144 mmol/L Sodium 139 LAB K 3.7-5.1 mmol/L Potassium 4.2 LAB CL 97-105 mmol/L Chloride 101 LAB CO2 22-30 mmol/L CO2 26 LAB AGAP 9-18 mmol/L Anion Gap 12 LAB ALT 7-38 U/L ALT Low 6 LAB GFRAA eGFR- Amer. >60 LAB GFRNAA . eGFR-All Other Races >60 Result Comment: eGFR (Estimated GFR) Units of measure: mL/min/1.73 meters squared eGFR is derived from the reexpressed MDRD Study equation using the following parameters: serum creatinine, age, gender and race. The creatinine assay has been calibrated to be traceable to IDMS. An eGFR <60 mL/min/1.73m2 for >3 months is consistent with chronic kidney disease. Refer to KDOQI guidelines for clinical interpretation. In patients with unstable renal function, e.g. those with acute kidney injury, the eGFR may not accurately reflect actual GFR. Performed By: #### CMP, LIPB, CBC #### [facility] [address] [place] [id number] LIPID PANEL, BASIC Collected: 08/07/2017 Status: F Source: [place] 4:06 PM [facility] REPOSITORY TYPE CODE TESTS RESULT OUT OF REFERENCE UNITS RANGE LAB CHOL <200 mg/dL Cholesterol High 201 Result Comment: <200 mg/dL, Desirable 200-239 mg/dL, Borderline high >239 mg/dL, High LAB TRIGLY <150 mg/dL Triglyceride 128 Result Comment: <150 mg/dL, Normal 150-199 mg/dL, Borderline high 200-499 mg/dL, High >499 mg/dL, Very high LAB HDL >39 mg/dL HDL-Cholesterol 58 Result Comment: 40-59 mg/dL, Acceptable >59 mg/dL, High: Negative risk factor for coronary heart disease <40 mg/dL, Low: Positive risk factor for coronary heart disease LAB LDL <100 mg/dL LDL-Cholesterol High 117 Result Comment: <100 mg/dL, Optimal 100-129 mg/dL, Near optimal/above optimal 130-159 mg/dL, Borderline high 160-189 mg/dL, High >189 mg/dL, Very high Secondary prevention optimal LDL Cholesterol levels are recommended to be < 70 mg/dL LAB NONHDL <130 mg/dL Non HDL High Cholesterol 143 Result Comment: <130 mg/dL, Optimal 130-159 mg/dL, Near optimal/above optimal 160-189 mg/dL, Borderline high 190-219 mg/dL, High >219 mg/dL, Very high Secondary prevention optimal non HDL Cholesterol levels are recommended to be < 100 mg/dL LAB FT hrs Fasting Time 4 LAB VLDL <30 mg/dL VLDL Cholesterol 26 LAB TCHDL <5.10 TC:HDL Ratio 3.47 LAB LDLHDL <2.54 LDL:HDL Ratio 2.02 Result Comment: Reference: 1. National Cholesterol Education Program ATP III Guideline At-A-Glance Quick Desk Reference: National Heart, Lung, and Blood [place]. National Institutes of Health. 2001: NIH Publication No. 01-3305. 2. An International Atherosclerosis Society position paper: global recommendations for the management of dyslipidemia: executive summary, Atherosclerosis. 2014: 232(2):410-413. Performed By: #### CMP, LIPB, CBC #### [facility] [address] [place], [place] [address] CBC Collected: 08/07/2017 Status: F Source: [place] 4:06 PM [facility] REPOSITORY TYPE CODE TESTS RESULT OUT OF REFERENCE UNITS RANGE LAB WBC 3.70-11.00 k/uL WBC 8.75 LAB RBC 3.90-5.20 m/uL RBC 4.63 LAB HGB 11.5-15.5 g/dL Hemoglobin 14.3 LAB HCT 36.0-46.0 % Hematocrit 43.6 LAB MCV 80.0-100.0 fL MCV 94.2 LAB MCH 26.0-34.0 pG MCH 30.9 LAB MCHC 30.5-36.0 g/dL MCHC 32.8 LAB RDWCV 11.5-15.0 % RDW-CV 11.7 LAB PLTCT 150-400 k/uL Platelet Count 310 LAB MPV 9.0-12.7 fL MPV 11.4 LAB ABSNUC <0.01 k/uL Absolute nRBC <0.01 Performed By: #### CMP, LIPB, CBC #### [facility] [address] [place], [place] [address] PROGRESS Observed: 08/07/2017 Status: COMPLETED Source: [place] 3:09 PM [facility] REPOSITORY HNO ID: [id number] Author: Juvenal Bruce) Tiago Service: (none) Author Type: Physician Type: Progress Notes Filed: 08/09/2017 2:39 PM Note Text: Chief Complaint Patient presents with: Establish Care HPI Karen Bell is a 42 year old female who presents here today for establish care visit. Patient has not been seen in the last couple years by PCP, was previously seeing Noa Frank. Patient developed c diff after treatment with keflex for mastitis back in April and since then has been on vancomycin x2 and flagyl x1 before getting placed on Dificid taper back in July. Patient states that her symptoms have improved significantly since starting the Dificid, but she is very nervous that her C diff will return when she stops her current regimen in a few days. Would be interested in fecal transplant if needed in the future. Discussed referral to GI or ID in the future if c diff returns. Patient is up to date on pap smear, had last pap after c section about 7 months ago[address] Performed by Dr. Chávez. Has always had normal pap smear. Not sure about HPV. Getting every couple years. Due for screening mammogram. Up to date on immunizations. Past medical history, appointments, medications, allergies reviewed. Previous Medical History PAST MEDICAL HISTORY Diagnosis Date - C. difficile colitis 2015 Previous Surgical History PAST SURGICAL HISTORY Procedure Laterality Date - PAST SURGICAL HISTORY OF x 4 - PAST SURGICAL HISTORY OF 2011 L elbow replacement s/p injury Family History FAMILY HISTORY Problem Relation Age of Onset - Stroke Mother 63 hyperlipidemia, carotid artery - Thyroid Father ? parathyroid adenoma - None Sister Patient Allergies ALLERGIES Allergen Reactions - Adhesive Tape (Rae* Rash - Penicillins Rash - Sulfa (Sulfonamide * Intolerance Current Medications Current Outpatient Prescriptions on File Prior to Visit: nystatin (MYCOSTATIN) 100,000 unit/mL suspension Take 5 mL by mouth four times daily for 7 days. fidaxomicin (DIFICID) 200 mg tablet Take 1 tablet by mouth twice daily for 10 days. multivitamin tablet Take 1 tablet by mouth once daily. No current facility-administered medications on file prior to visit. Social History Social History Marital status: Spouse name: Years of education: Number of children: Occupational History Occupation Employer Comment stay at home Social History Main Topics Smoking status: Never Smoker Smokeless status: Never Used Alcohol use: Yes 1.5 oz/week 1 Glasses of Wine (5oz) per week Drug use: No Sexual activity: Yes Partners with: Male Comment: natural family planning Social History Narrative 3 kids Natural family planning Review of Symptoms REVIEW OF SYSTEMS GENERAL: No weight loss, malaise or fevers HEENT: Negative for frequent or significant headaches, No changes in hearing or vision, no nose bleeds or other nasal problems NECK: Negative for lumps, goiter, pain and significant neck swelling RESPIRATORY: Negative for cough, hemoptysis, wheezing, COPD, dyspnea or shortness of breath CARDIOVASCULAR: Negative for chest pain, leg swelling, hypertension, CHF or palpitations GI: No nausea, vomiting, or diarrhea SKIN: Negative for lesions, rash, and itching EXAM: Pulse 72 Temp 36.2 ?C (97.2 ?F) (Left Tympanic) Resp 16 Ht 165.1 cm (5' 5) Wt 55.5 kg (122 lb 6.4 oz) LMP 08/04/2017 (Exact Date) SpO2 99% BMI 20.37 kg/m2 General Appearance: Well appearing, alert, in no acute distress, well-hydrated, well nourished.. Skin: Skin color, texture, turgor normal, no suspicious rashes or lesions. Head: Normocephalic, no masses, lesions, tenderness or abnormalities. Eyes: Anicteric sclera. Pupils are equally round and reactive to light. Extraocular movements are intact. . Oropharynx: Lips, mucosa, and tongue normal, teeth and gums normal, oropharynx normal. Neck: Supple, no adenopathy; thyroid symmetric, normal size, no bruits. Lungs: Lungs clear to auscultation. No wheezing, rhonchi, rales. Heart: RRR without murmur, gallop, or rubs. No ectopy. Abdomen: Normal abdominal exam, Abdomen soft, non-tender. Bowel sounds normal. No masses, organomegaly. Extremities: No deformities, edema, skin discoloration, clubbing or cyanosis. Good capillary refill. . Health Maintenance List HPV EVERY 5 YEARS due on 2007 MAMMOGRAM due on 2017 PAP EVERY 5 YEARS due on 11/30/2019 TETANUS due on 12/26/2026 INFLUENZA Completed ASSESSMENT/PLAN: 1. Annual physical exam - ICD9: V70.0, ICD10: Z00.00 (primary diagnosis) - Recommended regular aerobic exercise. - Check CBC with diff, CMP and fasting lipid panel - Follow up for annual exam in one year. - CBC - COMP METABOLIC PANEL - LIPID PANEL BASIC 2. Recurrent Clostridium difficile diarrhea - ICD9: 008.45, ICD10: A04.71 Continue dificid. To call with recurrent symptoms. Will look into alternative regimens while we would have her following up with ID. 3. Screening mammogram, encounter for - ICD9: V76.12, ICD10: Z12.31 - Set up for mammogram, yearly mammogram recommended - Follow up for annual exam in one year. - WINIFRED SCREENING Juvenal Ordoñez MD CNOV Observed: 08/07/2017 Status: COMPLETED Source: [place] 3:00 PM [facility] REPOSITORY Office Visit (FAMPWS) KAREN BELL ([id number]) 1975 F Date Time Provider Department 08/07/17 3:00 PM JUVENAL ORDO[facility]EZ) [facility] During your visit today, we recorded the following information about you: Temperature Pulse Respiration Blood pressure 97.2 degrees 72/minute 16/minute 102/84 Weight Height Last Period 55.5 kg 1.651 m 08/04/17 Juevnal Ordoñez MD 08/09/2017 2:39 PM Signed Chief Complaint Patient presents with: Establish Care HPI Karen Bell is a 42 year old female who presents here today for establish care visit. Patient has not been seen in the last couple years by PCP, was previously seeing Noa Frank. Patient developed c diff after treatment with keflex for mastitis back in April and since then has been on vancomycin x2 and flagyl x1 before getting placed on Dificid taper back in July. Patient states that her symptoms have improved significantly since starting the Dificid, but she is very nervous that her C diff will return when she stops her current regimen in a few days. Would be interested in fecal transplant if needed in the future. Discussed referral to GI or ID in the future if c diff returns. Patient is up to date on pap smear, had last pap after c section about 7 months ago[address] Performed by Dr. Chávez. Has always had normal pap smear. Not sure about HPV. Getting every couple years. Due for screening mammogram. Up to date on immunizations. Past medical history, appointments, medications, allergies reviewed. Previous Medical History PAST MEDICAL HISTORY Diagnosis Date - C. difficile colitis 2016 Previous Surgical History PAST SURGICAL HISTORY Procedure Laterality Date - PAST SURGICAL HISTORY OF x 4 - PAST SURGICAL HISTORY OF 2012 L elbow replacement s/p injury Family History FAMILY HISTORY Problem Relation Age of Onset - Stroke Mother 63 hyperlipidemia, carotid artery - Thyroid Father ? parathyroid adenoma - None Sister Patient Allergies ALLERGIES Allergen Reactions - Adhesive Tape (Rae* Rash - Penicillins Rash - Sulfa (Sulfonamide * Intolerance Current Medications Current Outpatient Prescriptions on File Prior to Visit: nystatin (MYCOSTATIN) 100,000 unit/mL suspension Take 5 mL by mouth four times daily for 7 days. fidaxomicin (DIFICID) 200 mg tablet Take 1 tablet by mouth twice daily for 10 days. multivitamin tablet Take 1 tablet by mouth once daily. No current facility-administered medications on file prior to visit. Social History Social History Marital status: Spouse name: Years of education: Number of children: Occupational History Occupation Employer Comment stay at home Social History Main Topics Smoking status: Never Smoker Smokeless status: Never Used Alcohol use: Yes 1.5 oz/week 1 Glasses of Wine (5oz) per week Drug use: No Sexual activity: Yes Partners with: Male Comment: natural family planning Social History Narrative 3 kids Natural family planning Review of Symptoms REVIEW OF SYSTEMS GENERAL: No weight loss, malaise or fevers HEENT: Negative for frequent or significant headaches, No changes in hearing or vision, no nose bleeds or other nasal problems NECK: Negative for lumps, goiter, pain and significant neck swelling RESPIRATORY: Negative for cough, hemoptysis, wheezing, COPD, dyspnea or shortness of breath CARDIOVASCULAR: Negative for chest pain, leg swelling, hypertension, CHF or palpitations GI: No nausea, vomiting, or diarrhea SKIN: Negative for lesions, rash, and itching EXAM: Pulse 72 Temp 36.2 ?C (97.2 ?F) (Left Tympanic) Resp 16 Ht 165.1 cm (5' 5ANDquot;) Wt 55.5 kg (122 lb 6.4 oz) LMP 08/04/2017 (Exact Date) SpO2 99% BMI 20.37 kg/m2 General Appearance: Well appearing, alert, in no acute distress, well-hydrated, well nourished.. Skin: Skin color, texture, turgor normal, no suspicious rashes or lesions. Head: Normocephalic, no masses, lesions, tenderness or abnormalities. Eyes: Anicteric sclera. Pupils are equally round and reactive to light. Extraocular movements are intact. . Oropharynx: Lips, mucosa, and tongue normal, teeth and gums normal, oropharynx normal. Neck: Supple, no adenopathy; thyroid symmetric, normal size, no bruits. Lungs: Lungs clear to auscultation. No wheezing, rhonchi, rales. Heart: RRR without murmur, gallop, or rubs. No ectopy. Abdomen: Normal abdominal exam, Abdomen soft, non-tender. Bowel sounds normal. No masses, organomegaly. Extremities: No deformities, edema, skin discoloration, clubbing or cyanosis. Good capillary refill. . Health Maintenance List HPV EVERY 5 YEARS due on 2007 MAMMOGRAM due on 2017 PAP EVERY 5 YEARS due on 11/30/2019 TETANUS due on 12/26/2026 INFLUENZA Completed ASSESSMENT/PLAN: 1. Annual physical exam - ICD9: V70.0, ICD10: Z00.00 (primary diagnosis) - Recommended regular aerobic exercise. - Check CBC with diff, CMP and fasting lipid panel - Follow up for annual exam in one year. - CBC - COMP METABOLIC PANEL - LIPID PANEL BASIC 2. Recurrent Clostridium difficile diarrhea - ICD9: 008.45, ICD10: A04.71 Continue dificid. To call with recurrent symptoms. Will look into alternative regimens while we would have her following up with ID. 3. Screening mammogram, encounter for - ICD9: V76.12, ICD10: Z12.31 - Set up for mammogram, yearly mammogram recommended - Follow up for annual exam in one year. - WINIFRED SCREENING Juvenal Ordoñez MD Referring Provider: SELF [200] Allergies As of Date: 08/07/2017 Noted Allergy Reaction ADHESIVE TAPE (ROSINS) 10/19/2013 2 - Rash PENICILLINS 10/19/2013 2 - Rash SULFA (SULFONAMIDE ANTIBIOTICS) 09/08/2015 5 - Intolerance Date Reviewed: 08/07/2017 Reviewed by: Avery Duron Ma - Fully Assessed Reason for Visit: Establish Care [42] Primary Visit Diagnosis:Annual physical exam [Z00.00] Other Visit Diagnoses:Recurrent Clostridium difficile diarrhea [A04.71] Screening mammogram, encounter for [Z12.31] Order(s):WINIFRED SCREENING [7671212] Order #: [id number] FUTURE CBC [SQCBC] Order #: [id number] FUTURE COMP METABOLIC PANEL [SQCMP] Order #: [id number] FUTURE LIPID PANEL BASIC [SQLIPB] Order #: [id number] FUTURE Prescriptions as of 08/07/2017 Sig: FIDAXOMICIN 200 MG TABLET Take 1 tablet by mouth twice * Medication notes this encounter FIDAXOMICIN 200 MG TABLET >> Avery Haumesser Ma 08/07/2017 3:09 PM >> HAUMESSER AVERY ELDER ThuAug 07, 2017 3:[address] Bhatt extended ANTB. >> Avery Haumesser Ma 08/07/2017 3:10 PM >> HAUMESSER AVERY ELDER ThuAug 07, 2017 3:[address] Bhatt extended ANTB. Taking 200 mg every other day. NYSTATIN 100,000 UNIT/ML ORAL SUSPENSION >> Avery Haumesser Ma 08/07/2017 3:10 PM >> HAUMESSER AVERY ELDER ThuAug 07, 2017 3:10 PM Therapy complete. MULTIVITAMIN TABLET >> Avery Haumesser Ma 08/07/2017 3:06 PM >> AVERY DURON MA ThuAug 07, 2017 3:06 PM Has stopped while taking ANTB. Problem List As Of Date 08/07/2017 Noted Resolved Enterocolitis due to Clostridium difficile [A04*INVALID FOR* More... Recurrent UTI [N39.0] INVALID FOR* More... Medications Discontinued During This Encounter multivitamin tablet 0 10/19/2013 08/07/2017 Class: Med Update Route: ORAL Sig: Take 1 tablet by mouth once daily. Disc: Reason for discontinue is not on file. Cosign accepted by LEISA SALAS CNP[[id number]] on 10/19/2013 1:17 PM nystatin (MYCOSTATIN) 100,000 unit/m* 70 mL 1 07/16/2017 08/07/2017 Route: ORAL Sig: Take 5 mL by mouth four times daily for 7 days. Disc: Reason for discontinue is not on file. Disposition: Return in about 1 year (around 08/07/2018). Follow-up and Disposition History Recorded Encounter Status:Closed by JUVENAL ORDOÑEZ MD on 08/09/17 PROGRESS Observed: 07/16/2017 Status: COMPLETED Source: [place] 9:32 AM [facility] REPOSITORY HNO ID: [id number] Author: STACIE Teixeira (Cns) Service: (none) Author Type: Nurse Specialist Type: Progress Notes Filed: 07/16/2017 9:48 AM Note Text: OUTPATIENT VISIT DATE July 16, 2017 OUTPATIENT VISIT TYPE ESTABLISHED PRIMARY CARE PHYSICIAN: No Pcp CHIEF COMPLAINT: Patient presents with: Mouth/Lip Problem History of Present Illness: Karen Bell is a 42 year old female who was last seen 07/03/2017 by Amanda Phan CNP. She has been seen in the past for ACTIVE PROBLEM LIST Enterocolitis Due to Clostridium Difficile Recurrent Uti Presents today with report of sensation of discomfort in throat, occasional discomfort with swallowing, feels like something is in her throat, white spots on tongue, oral cavity. Father is retired ICU nurse, advised may be thrush. Has been taking probiotics. She also reports a recent down tapering of medication for c difficele, notes some discomfort in abdomen and nausea, but no increase in bowel movements. No recent hospital or ED visits. No new medical problems or medications. Able to obtain medications. No problems with taking medications or note side effects. PAST MEDICAL HISTORY Diagnosis Date - C. difficile colitis 2015 PAST SURGICAL HISTORY Procedure Laterality Date - PAST SURGICAL HISTORY OF x 3 - PAST SURGICAL HISTORY OF 2012 L elbow replacement s/p injury FAMILY HISTORY Problem Relation Age of Onset - Stroke Mother 63 hyperlipidemia, carotid artery - Thyroid Father ? parathyroid adenoma - None Sister Social History Substance Use Topics - Smoking status: Never Smoker - Smokeless tobacco: Never Used - Alcohol use 1.5 oz/week 1 Glasses of Wine (5oz) per week ALLERGIES: ALLERGIES Allergen Reactions - Adhesive Tape (Rae* Rash - Penicillins Rash - Sulfa (Sulfonamide * Intolerance MEDICATIONS nystatin (MYCOSTATIN) 100,000 unit/mL suspension Take 5 mL by mouth four times daily for 7 days. fidaxomicin (DIFICID) 200 mg tablet Take 1 tablet by mouth twice daily for 10 days. multivitamin tablet Take 1 tablet by mouth once daily. REVIEW OF SYSTEMS: GENERAL: Negative for: Weight loss or gain, Fever or Chills, Weakness and Sleep difficulties. Physical Examination: BP 100/72 Pulse 98 Temp 68 Resp 16 Wt 121 lb (54.9kg) Extended Vitals not filed for this encounter. General appearance: Well appearing, alert, in no acute distress, well-hydrated, well nourished. Skin: Skin color, texture, turgor normal, no suspicious rashes or lesions Oropharynx: Lips, few whitish spots on oral mucosa and tongue, teeth and gums normal Lungs: Lungs clear to auscultation. No wheezing, rhonchi, rales Heart: RRR without murmur, gallop, or rubs. No ectopy Abdomen: Abdomen soft, non-tender. Bowel sounds normal. No masses, organomegaly Neuro: Gait normal. Sensation grossly intact. Reviewed chart, outside records, tests I personally interviewed, confirmed and edited the above information if obtained by others. TESTING: Glucose (mg/dL) Date Value 10/04/2015 95 Potassium (mmol/L) Date Value 10/04/2015 3.8 Sodium (mmol/L) Date Value 10/04/2015 140 Chloride (mmol/L) Date Value 10/04/2015 102 CO2 (mmol/L) Date Value 10/04/2015 24 Creatinine (mg/dL) Date Value 10/04/2015 0.69 BUN (mg/dL) Date Value 10/04/2015 16 Anion Gap (mmol/L) Date Value 10/04/2015 14 Calcium (mg/dL) Date Value 10/04/2015 9.0 Glucose (mg/dL) Date Value 10/04/2015 95 Potassium (mmol/L) Date Value 10/04/2015 3.8 Sodium (mmol/L) Date Value 10/04/2015 140 Chloride (mmol/L) Date Value 10/04/2015 102 CO2 (mmol/L) Date Value 10/04/2015 24 Creatinine (mg/dL) Date Value 10/04/2015 0.69 BUN (mg/dL) Date Value 10/04/2015 16 Anion Gap (mmol/L) Date Value 10/04/2015 14 Calcium (mg/dL) Date Value 10/04/2015 9.0 Protein, Total (g/dL) Date Value 10/04/2015 7.0 Albumin (g/dL) Date Value 10/04/2015 4.3 Bilirubin, Total (mg/dL) Date Value 10/04/2015 0.8 Alkaline Phosphatase (U/L) Date Value 10/04/2015 50 AST (U/L) Date Value 10/04/2015 22 ALT (U/L) Date Value 10/04/2015 17 Hemoglobin (g/dL) Date Value 10/04/2015 13.2 Hematocrit (%) Date Value 10/04/2015 39.0 WBC (k/uL) Date Value 10/04/2015 8.15 No results found for: CHOL, HDL, LDL, TG No results found for: HBA1C Ejection Fraction: No results found IMPRESSION: Ms. Bell is a 42 year old woman presents for throat discomfort. After my examination and review of data, I make the following recommendations. PLAN AND RECOMMENDATIONS: 1. Thrush - ICD9: 112.0, ICD10: B37.0 Globus sensation, some throat discomfort Few white spots on exam Will treat as thrush. If not improved one week, refill script. Hold probiotic for a few days to see if this helps - NYSTATIN 100,000 UNIT/ML ORAL SUSPENSION 2. Enterocolitis due to Clostridium difficile - ICD9: 008.45, ICD10: A04.72 Nausea, discomfort in legs, feels as if C diff is about to flare again with decreasing of dose for treatment. No increase in bowel movements as yet. Advise let primary know if increasing symptoms on decreasing dose of medication. Advised to go to ER if develops chest pain, shortness of breath, or severe worsening of symptoms. Discussed risks, benefits, alternatives, and potential side effects of medications. Ms. Bell expressed understanding and agreed with the plan. Lolly Villanueva, STACIE PROGRESS Observed: 07/03/2017 Status: COMPLETED Source: [place] 8:51 AM [facility] REPOSITORY HNO ID: [id number] Author: Amanda Phan Service: (none) Author Type: Nurse Practitioner Type: Progress Notes Filed: 07/03/2017 9:26 AM Note Text: CC: Patient presents with: Recheck: C-Diff follow up HPI Karne Bell is a 42 year old female who presents today for Cdiff reoccurrence. Patient having diarrhea started ~4days ago. Previous history of Cdiff and tested positive on 07/01/17. Reports feeling well overall. Denies any fever, chills, abdominal pain, nausea, vomiting, black or bloody stools. Having intermittent diarrhea with some formed BMs 4-6 times per day. Patient taking probiotic at home. Reports adequate fluid intake and no changes in appetite. REVIEW OF SYSTEMS General: no fevers, no chills, no night sweats, no change in appetite, no change in energy and no significant changes in weight GI: Negative for abdominal discomfort, blood in stools or black stools, heart burn, nausea, vomiting and Positive for diarrhea : No history of dysuria, frequency or incontinence PAST MEDICAL HISTORY Diagnosis Date - C. difficile colitis 2016 PAST SURGICAL HISTORY Procedure Laterality Date - PAST SURGICAL HISTORY OF x 3 - PAST SURGICAL HISTORY OF 2012 L elbow replacement s/p injury ALLERGIES Adhesive Tape (Rosins); Penicillins; Sulfa (Sulfonamide Antibiotics) MEDICATIONS fidaxomicin (DIFICID) 200 mg tablet Take 1 tablet by mouth twice daily. metroNIDAZOLE (FLAGYL) 500 mg tablet Take 1 tablet by mouth three times daily. multivitamin tablet Take 1 tablet by mouth once daily. FAMILY HISTORY Problem Relation Age of Onset - Stroke Mother 63 hyperlipidemia, carotid artery - Thyroid Father ? parathyroid adenoma - None Sister Social History Substance Use Topics - Smoking status: Never Smoker - Smokeless tobacco: Never Used - Alcohol use 1.5 oz/week 1 Glasses of Wine (5oz) per week PHYSICAL EXAM BP 124/78 Pulse 77 Temp 36.5 ?C (97.7 ?F) (Temporal Artery) Resp 16 Wt 55.8 kg (123 lb) SpO2 99% BMI 19.85 kg/m2 General Appearance: well appearing, in no acute distress, alert Lungs: Lungs clear to auscultation. No wheezing, rhonchi, rales Heart: RRR without murmur, gallop, or rubs. No ectopy Abdomen: Abdomen soft, non-tender. Bowel sounds normal. No masses, organomegaly HPV EVERY 5 YEARS due on 2007 MAMMOGRAM due on 2017 PAP EVERY 5 YEARS due on 11/30/2019 TETANUS due on 12/26/2026 INFLUENZA Completed ASSESSMENT/PLAN: 1. Enterocolitis due to Clostridium difficile - ICD9: 008.45, ICD10: A04.72 - Discussed treatment options including Vanco taper, Dificid and Fecal transplant. Patient is uncertain she wants to take Vanco again at this time. Would prefer to try alternative therapy in the form of Dificid. - Will need prior authorization - If PA declined, patient willing to try Vanco taper. If treatment fails she will then consider fecal transplant. - Encouraged daily probiotic with >10 billion colony forming units per day - Discussed importance of hand hygiene at home and use of bleach products for killing cdiff spores - Follow up to be determined with approved drug therapy, discussed with patient who verbalizes understanding Prescription instructions reviewed with patient as applicable. Potential red flag symptoms discussed with the patient. Reviewed appropriate action plan to take if red flag symptoms occur. Patient agreeable to treatment plan. Amanda Phan CNP C DIFFICILE PCR Collected: 07/01/2017 Status: F Source: [place] 6:30 AM [facility] REPOSITORY TYPE CODE TESTS RESULT OUT OF RANGE REFERENCE UNITS LAB CDFRES C Abnormal difficile PCR Positive for Alert C. difficile toxin by PCR Performed By: #### CDPCR #### [facility] [address] [address] ALLERGIES ALLERGIES DATE TYPE / NAME / CODE REACTION SEVERITY SOURCE CODE 01/01/2017 Drug Sulfa Nausea Unknown Tiffanie Allergy/41 (Sulfonamide [facility] 8316928( Antibiotics)/F001 [facility] CT) 939468(RXNORM) Repository 06/26/2016 Drug Penicillins/F0010 Rash Unknown Tiffanie Allergy/41 90488(RXNORM) [facility] 2923143([facility] CT) Repository 06/26/2016 Drug adhesive/[id number] Rash Unknown [place]ancleave Allergy/41 45(RXNORM) [facility] [id number]([facility]) Repository 09/08/2015 Drug SULFA INTOLERANCE [facility] Class/4195 (SULFONAMIDE [facility] [place] [address](SNOM ANTIBIOTICS) Repository ED CT) 10/19/2013 Chemical/4 ADHESIVE TAPE RASH [facility] [id number](S (ROSINS) [facility] [place] NOMED CT) Repository 10/19/2013 Drug PENICILLINS RASH [facility] Class/4195 [facility] [place] [address](SNOM Repository ED CT) ENCOUNTERS ENCOUNTERS ADMIT/DISCHARGE ACCOUNT ADMITTING ENCOUNTER LOCATION SOURCE NUMBER CLASS 05/19/2018 [id number] [facility] ing:LAB.FUTUR Repository E 03/05/2018 [id number] [facility] ing:LAB Repository 02/17/2018 [id number] [facility] ing:LABSPEC Repository 02/08/2018/02/09/20 [id number] Ambulatory [address] Main [place] Repository 02/02/2018/02/04/20 [id number] Ambulatory [address] [facility] [place] Repository 01/31/2018/02/01/20 [id number] Ambulatory [address] [facility] [place] Repository 01/22/2018/01/26/20 [id number] Ambulatory [address] [facility] [place] Repository 12/11/2017/12/15/19 [id number] Ambulatory [address] [facility] [place] Repository 12/04/2017/12/05/19 [id number] Ambulatory [address] [facility] [place] Repository 11/11/2017/11/12/19 [id number] Ambulatory [address] [facility] [place] Repository 11/11/2017/11/12/19 [id number] Ambulatory [address] [facility] [place] Repository 11/09/2017 [id number] Ambulatory [facility] Main [place] Repository 09/22/2017/09/23/19 [id number] Ambulatory [address] [facility] [place] Repository 09/21/2017/09/23/19 [id number] Ambulatory [address] [facility] [place] Repository 08/07/2017/08/08/19 [id number] Ambulatory [address] [facility] [place] Repository 08/07/2017/08/11/19 [id number] Ambulatory [address] [facility] [place] Repository 07/16/2017/07/21/19 [id number] Ambulatory [address] [facility] [place] Repository 07/03/2017/07/03/19 [id number] Ambulatory [address] Repository PAYERS PAYERS ENCOUNTER GUARANTOR PAYER SUBSCRIBER SOURCE 05/19/2018 KAREN Pindea Primary KAREN Moreno [id number] Insurance:ANTHEMPolic NUSSBAUMDOB: Community ZUERCHER y Number: [id number] [place] [id number] Repository [address]Hza: [phone]) Date:0591-66-00VR [phone] () [id number], [place] [address]ER: 05/19/2018 Secondary NOT GIVENUNK Tiffanie Insurance:SELF PAY [facility] Number: Effective Repository Date:2018-05-19 03/05/2018 KAREN Pineda Primary KAREN Moreno [id number] Insurance:ANTHEMPolic NUSSBAUMDOB: Community ZUERKARELY y [place]: [id number] [id number] Repository [address]Eim: [phone]) Date:9491-75-11TB [phone] () [id number], [place] [address]QO: 03/05/2018 Secondary NOT GIVENUNK Tiffanie Insurance:SELF PAY [facility] Number: Effective Repository Date:2018-03-05 02/17/2018 KAREN Pineda Primary KAREN Moreno [id number] Insurance:ANTHEMPolic NUSSBAUMDOB: [facility] ZUERCHER y Number: [id number] [id number] Repository [address]Yzr: ([phone]) Date:6649-52-01DH [phone] () [id number], [place] [address]KY: 02/17/2018 Secondary NOT GIVENUNK [place] Insurance:SELF PAY [facility] Number: Effective Repository Date:2018-02-17
== END ==
PROVIDERS: Family Provider Family Medicine; PCP Family Medicine; Referring Provider Urology; Visit Provider Urology
DX: R30.0 Dysuria (principal)
CPT/HCPCS: 87077; 87086; 87088; 87186

== ENCOUNTER → 2018-07-28 13:46 | Outpatient (CLI) | payer BC, SELFPAY | PROVIDERS: Family Provider Family Medicine; PCP Family Medicine; Referring Provider Nurse Practitioner Adult Health; Visit Provider Nurse Practitioner Adult Health | DX: R30.0 Dysuria (principal) | CPT/HCPCS: 87086 ==

== ENCOUNTER → 2018-09-08 12:55 | Outpatient (CLI) | payer BC, SELFPAY | PROVIDERS: Family Provider Family Medicine; PCP Family Medicine; Referring Provider Nurse Practitioner Adult Health; Visit Provider Nurse Practitioner Adult Health | DX: R30.0 Dysuria (principal) | CPT/HCPCS: 87086; 87088 ==

== ENCOUNTER 2018-10-30 16:17 | Emergency (ER) | payer BC, SELFPAY ==
[2018-10-30 16:19] VITALS: BP 118/87; PULSE 75; RESP 16; TEMP 37.1; O2SAT 99; BMI 19.3
[2018-10-30 16:34] LABS: Bacteria 0 SEEN /hpf (None Seen); Mucous, Urine 0 SEEN /hpf (<or=2+); White Blood Cells 0 SEEN /hpf (0-5)
[2018-10-30 16:44] LABS: Color, Urine Yellow (Yellow); Glucose, Dipstick Normal (Normal); Ketone-Dipstick Negative (Negative); Leukocyte Esterase-Dipstick Negative /ul (Negative); Nitrite-Dipstick Negative (Negative); Occult Blood-Urine 10 /ul (Negative); Protein-Dipstick Negative (Negative); Specific Gravity, Urine 1.005 (1.002-1.030); Urine Bilirubin Dipstick Negative (Negative); Urine Clarity Sl. Cloudy (Clear); Urine Urobilinogen Normal (Normal); Urine pH 6.5 (5.0 - 8.0)
[2018-10-30 16:54] LABS: Internal QC Validated? YES +Cl - CLEAR BKGD; Pregnancy, Urine Negative Negative
--- NOTE | 2018-10-30 16:57 | ED.VISSUMM ---
- ER Visit Summary Date of Service: 10/30/18 Chief Complaint: Dysuria History of Present Illness: The patient is a 43 F presents to the emergency department 2 days of increasing urinary frequency and dysuria. Patient has a history of interstitial cystitis. She also states that she gets infections from time to time. She does follow with Dr. Rosario. She denies any fevers. She denies any chills or sweats. She said no back pain. She did attempt to go to urgent care, but they were closed. Physical Examination: Vital signs reviewed General: Well-nourished, well-developed Head: Normocephalic, atraumatic Eyes: Pupils equal and reactive, extraocular muscles intact Neck, supple, no lymphadenopathy Heart: Regular rate and rhythm Respiratory: No distress, clear bilaterally Abdomen: Soft, nontender, nondistended, no peritoneal signs Back: Nontender Extremities: Nontender, no edema, no cords Skin: Normal color no rash Neuro: Alert and oriented, no focal or lateralizing deficits Test Results: [] Emergency Department Course and Treatment: Urine was obtained. There is no evidence of acute infection. Culture was added. We will hold on antibiotics. The patient will follow with urology to await the results of the culture. Treatment Plan: [] Disposition: Discharge Impression: 1. Dysuria This note was generated with [employer] dictation software. It may contain incorrect words, spelling, and punctuation that were not noted in review of the chart prior to signing ED Disposition - Plan for ED Patient: Instructions: ED Urethritis Infec Vs Inflam Fem Referrals: Edgar Ordoñez MD [Primary Care Provider] -
[2018-10-30 16:58] LABS: Red Blood Cells-Urine 0-5 SEEN /hpf (0-5); Squamous Epithelial Cells - UA 0-5 SEEN /hpf (5-10)
[2018-10-30 17:12] VITALS: BP 117/65; PULSE 82; RESP 16; O2SAT 98
== END 2018-10-30 17:13 | disposition home or self-care (01) ==
LOC: ED 17:07
PROVIDERS: Emergency Provider Emergency Medicine; Family Provider Family Medicine; PCP Family Medicine
DX: N30.90 Cystitis, unspecified without hematuria (principal); K58.9 Irritable bowel syndrome, unspecified
CPT/HCPCS: 81001; 81025; 87086; 87088; 99282

== ENCOUNTER → 2019-07-14 17:09 | Outpatient (CLI) | payer BC, SELFPAY ==
[2019-07-19 15:08] LABS: HPV Reflexed? NOT INDICATED
== END ==
PROVIDERS: PCP Family Medicine; Visit Provider Obstetrics & Gynecology
DX: Z12.4 Encounter for screening for malignant neoplasm of cervix (principal)
CPT/HCPCS: 88175; G0145

== ENCOUNTER → 2021-02-25 | Outpatient (CLI) | payer BC, SELFPAY | END | disposition home or self-care (01) | LOC: LABSPEC 16:30 | PROVIDERS: PCP Family Medicine; Referring Provider Nurse Practitioner Adult Health; Visit Provider Nurse Practitioner Adult Health | DX: N30.21 Other chronic cystitis with hematuria (principal) | CPT/HCPCS: 87086; 87088 ==

== ENCOUNTER 2021-06-21 08:18 | Outpatient (CLI) | payer BC, SELFPAY | END 2021-06-21 23:59 | disposition short-term general hospital (02) | LOC: MTLAB 08:19 | PROVIDERS: PCP Family Medicine; Referring Provider Urology; Visit Provider Urology | DX: N39.0 Urinary tract infection, site not specified (principal) | CPT/HCPCS: 87086; 87088 ==

== ENCOUNTER → 2021-12-04 | Outpatient (CLI) | payer BC, SELFPAY | END | disposition home or self-care (01) | PROVIDERS: PCP Family Medicine; Referring Provider Urology; Visit Provider Urology | DX: N39.0 Urinary tract infection, site not specified (principal) | CPT/HCPCS: 87086; 87088 ==

== ENCOUNTER → 2022-04-02 | Outpatient (CLI) | payer BC, SELFPAY ==
[2022-04-02 14:02] LABS: Color, Urine Yellow (Yellow); Glucose, Dipstick Normal (Normal); Ketone-Dipstick Negative (Negative); Leukocyte Esterase-Dipstick Negative /ul (Negative); Nitrite-Dipstick Negative (Negative); Occult Blood-Urine 10 /ul (Negative); Protein-Dipstick Negative (Negative); Urine Bilirubin Dipstick Negative (Negative); Urine Clarity Sl. Cloudy (Clear); Urine Urobilinogen Normal (Normal)
== END | disposition home or self-care (01) ==
PROVIDERS: PCP Family Medicine; Referring Provider Urology; Visit Provider Urology
DX: N39.0 Urinary tract infection, site not specified (principal)
CPT/HCPCS: 81002; 87086; 87088

== ENCOUNTER → 2022-04-04 | Outpatient (CLI) | payer BC, SELFPAY | END | disposition home or self-care (01) | LOC: MTLAB 14:58 | PROVIDERS: PCP Family Medicine; Referring Provider Urology; Visit Provider Urology | DX: N39.0 Urinary tract infection, site not specified (principal) | CPT/HCPCS: 36415; 87086; 87088 ==

== ENCOUNTER → 2022-06-23 | Outpatient (CLI) | payer BC, SELFPAY ==
[2022-06-26 18:50] LABS: HPV APTIMA, High Risk Negative (Negative)
== END | disposition home or self-care (01) ==
LOC: LABSPEC 11:46
PROVIDERS: PCP Family Medicine; Visit Provider Student in an Organized Health Care Education/Training Program
DX: Z01.419 Encounter for gynecological examination (general) (routine) without abnormal findings (principal)
CPT/HCPCS: 87624; 88175; G0145